=== PATIENT | male | born 1965 | race Caucasian/White ===

== ENCOUNTER 2017-01-11 17:31 | Observation (INO) | payer BC ==
[~2017-01-11] VITALS: Ht 175.3 cm; Wt 75.0 kg
[~2017-01-11 17:31] MED LIST: ASPI81TA82 PO; ATOR20TA42 PO; CLOP75 PO; LISI5 PO; METO25 PO; PROT40TA PO
[2017-01-11 17:35] VITALS: BP 140/88; PULSE 56; RESP 16; TEMP 97.8; O2SAT 97
[2017-01-11] MEDS: NITROGLYCERIN 0.4 MG SL 25 TABS/BTL SL SCH ×3 (18:00→18:10)
[2017-01-11] MEDS ORDERED: SODIUM CHLORIDE 0.9% FLUSH 10 ML FLUSH IVF PRN ×2 (18:00→20:00)
[2017-01-11] MEDS ORDERED: ASPIRIN 325 MG TAB PO ONE (18:00)
[2017-01-11] MEDS ORDERED: MORPHINE SULFATE 4 MG/ML INJ IV PUSH ONE (18:00)
[2017-01-11 18:32] VITALS: BP 123/79; PULSE 72; RESP 18; O2SAT 99
--- NOTE | 2017-01-11 18:39 | PD ---
HPI Chief Complaint: Cardiac Complaint Time Seen by Provider: 17:44 Travel History International Travel<30 days: No Contact w/Intl Traveler<30days: No Traveled to known affect area: No History of Present Illness HPI Patient's 51 years old. About 18 months prior he underwent a CABG. Since then he has been feeling fine. For the past 2 days however he has had chest pressure 6/10 at its worst. At the time of ER evaluation it's 4 out of 10. He has been compliant with all his medications including lisinopril metoprolol atorvastatin propoxyphene and aspirin. He denies any exertional or pleuritic chest pain. There is no radiation of pain. He notes a significant amount of stress and work as well as personal life. Additional complaints include some dentalgia on the right side and diarrhea a week and a half ago or so. PFSH Past Medical History Hx Anticoagulant Therapy: Yes (precautionary for dvt) Cardiac Catheterization: Yes (no stents) Cardiovascular Problems: Yes Diminished Hearing: No Deep Vein Thrombosis: Yes Immunizations Current: Yes Tetanus Vaccination: Unknown Influenza Vaccination: No Social History Alcohol Use: No Tobacco Use: No Substance Use: No Allergies-Medications (Allergen,Severity, Reaction): Coded Allergies: No Known Allergies (Unverified , 12/28/15) Reported Meds & Prescriptions Reported Meds & Active Scripts Active Reported Aspirin 81 Mg Chew 81 Mg CHEW ONCE Paroxetine (Paroxetine HCl) 10 Mg Tab 10 Mg PO DAILY Atorvastatin (Atorvastatin Calcium) 40 Mg Tab 40 Mg PO HS Metoprolol Tartrate 25 Mg Tab 25 Mg PO DAILY Lisinopril 5 Mg Tab 5 Mg PO DAILY Review of Systems Except as stated in HPI: all other systems reviewed are Neg Physical Exam Narrative GENERAL: 51-year-old male well-nourished and developed SKIN: Focused skin assessment warm/dry. HEAD: Atraumatic. Normocephalic. EYES: Pupils equal and round. No scleral icterus. No injection or drainage. ENT: No nasal bleeding or discharge. Mucous membranes pink and moist. NECK: Trachea midline. No JVD. CARDIOVASCULAR: Regular rate and rhythm. No murmur appreciated. Sternotomy incision is healing appropriately without tenderness. RESPIRATORY: No accessory muscle use. Clear to auscultation. Breath sounds equal bilaterally. GASTROINTESTINAL: Abdomen soft, non-tender, nondistended. Hepatic and splenic margins not palpable. MUSCULOSKELETAL: No obvious deformities. No clubbing. No cyanosis. No edema. NEUROLOGICAL: Awake and alert. No obvious cranial nerve deficits. Motor grossly within normal limits. Normal speech. PSYCHIATRIC: Appropriate mood and affect; insight and judgment normal. Data Data Last Documented VS Vital Signs Date Time Temp Pulse Resp B/P Pulse Ox O2 Delivery O2 Flow Rate FiO2 01/11/17 18:32 61 99 Room Air 01/11/17 18:32 18 123/79 01/11/17 17:35 97.8 Vital signs are reviewed Orders Electrocardiogram (01/11/17 17:59) Basic Metabolic Panel (Bmp) (01/11/17 17:59) Ckmb (Isoenzyme) Profile (01/11/17 17:59) Complete Blood Count With Diff (01/11/17 17:59) Magnesium (Mg) (01/11/17 17:59) Prothrombin Time / Inr (Pt) (01/11/17 17:59) Act Partial Throm Time (Ptt) (01/11/17 17:59) Troponin I (01/11/17 17:59) Chest, Single Ap (01/11/17 17:59) Ecg Monitoring (01/11/17 17:59) Iv Access Insert/Monitor (01/11/17 17:59) Oximetry (01/11/17 17:59) Oxygen Administration (01/11/17 17:59) Aspirin (Aspirin) (01/11/17 18:00) Morphine Inj (Morphine Inj) (01/11/17 18:00) Sodium Chloride 0.9% Flush (Ns Flush) (01/11/17 18:00) Nitroglycerin Sl (Nitrostat Sl) (01/11/17 18:00) CKMB (01/11/17 18:20) CKMB% (01/11/17 18:20) Admit Order (Ed Use Only) (01/11/17 ) ^ Saline Lock (01/11/17 19:56) Resp Oxygen Howard C Titrat 1-4 L (01/11/17 ) Notify Dr: Other (01/11/17 19:56) Sodium Chloride 0.9% Flush (Ns Flush) (01/11/17 21:00) Sodium Chloride 0.9% Flush (Ns Flush) (01/11/17 20:00) Activity Bed Rest With Brp (01/11/17 19:56) Vital Signs (Adult) Q4H (01/11/17 19:56) Cardiac Rhythm .As Directed (01/11/17 19:56) Notify Dr: Other .PRN (01/11/17 19:56) Notify DrMarlee Parameters (01/11/17 19:56) Resp Oxygen Nasal Cannula (01/11/17 ) Ckmb (Isoenzyme) Profile (01/11/17 21:20) Ckmb (Isoenzyme) Profile (01/12/17 00:20) Troponin I (01/11/17 21:20) Troponin I (01/12/17 00:20) Electrocardiogram (01/11/17 21:20) Electrocardiogram (01/12/17 00:20) ^ Obtain (01/11/17 19:56) Sodium Chloride 0.9% Flush (Ns Flush) (01/11/17 20:00) Sodium Chloride 0.9% Flush (Ns Flush) (01/11/17 21:00) Acetaminophen (Tylenol) (01/11/17 20:00) Acetamin-Hydrocod 325-7.5 Mg ([place] 7.5 (01/11/17 20:00) Morphine Inj (Morphine Inj) (01/11/17 20:00) Ondansetron Inj (Zofran Inj) (01/11/17 20:00) Nitroglycerin Sl (Nitrostat Sl) (01/11/17 20:00) Aspirin (Aspirin) (01/12/17 09:00) Alprazolam (Xanax) (01/11/17 20:00) Registered Route Associate / Telemetry AHSAN.Q8H (01/11/17 19:56) Labs Laboratory Tests Test 01/11/17 18:20 White Blood Count 6.4 TH/MM3 Red Blood Count 4.60 MIL/MM3 Hemoglobin 13.5 GM/DL Hematocrit 41.4 % Mean Corpuscular Volume 90.0 FL Mean Corpuscular Hemoglobin 29.2 PG Mean Corpuscular Hemoglobin 32.5 % Concent Red Cell Distribution Width 13.0 % Platelet Count 234 TH/MM3 Mean Platelet Volume 8.0 FL Neutrophils (%) (Auto) 57.4 % Lymphocytes (%) (Auto) 30.0 % Monocytes (%) (Auto) 7.0 % Eosinophils (%) (Auto) 4.9 % Basophils (%) (Auto) 0.7 % Neutrophils # (Auto) 3.7 TH/MM3 Lymphocytes # (Auto) 1.9 TH/MM3 Monocytes # (Auto) 0.4 TH/MM3 Eosinophils # (Auto) 0.3 TH/MM3 Basophils # (Auto) 0.0 TH/MM3 CBC Comment DIFF FINAL Differential Comment Prothrombin Time 10.9 SEC Prothromb Time International 1.0 RATIO Ratio Activated Partial 26.4 SEC Thromboplast Time Sodium Level 138 MEQ/L Potassium Level 3.7 MEQ/L Chloride Level 105 MEQ/L Carbon Dioxide Level 26.9 MEQ/L Anion Gap 6 MEQ/L Blood Urea Nitrogen 10 MG/DL Creatinine 0.66 MG/DL Estimat Glomerular Filtration 128 ML/MIN Rate Random Glucose 88 MG/DL Calcium Level 9.2 MG/DL Magnesium Level 2.4 MG/DL Total Creatine Kinase 108 U/L Creatine Kinase MB 0.5 NG/ML Troponin I LESS THAN 0.02 NG/ML MDM Medical Decision Making Medical Screen Exam Complete: Yes Emergency Medical Condition: Yes Medical Record Reviewed: Yes Differential Diagnosis NSTEMI, unstable angina, coronary vasospasm, PE, PTX, aortic dissection, pericarditis, myocarditis, endocarditis, PNA, esophageal disease, aneurysm, musculoskeletal etiologies, anxiety, cocaine/sympathomimetic abuse Narrative Course EKG reveals a sinus rhythm at a rate of 52 normal Patient received nitroglycerin and experienced near complete resolution of chest pressure Chest x-ray reveals no acute disease Oncoming provider will disposition patient pending results. Diagnosis Primary Impression: Chest pain Qualified Code: R07.9 - Chest pain, unspecified type Mg Toth MD Jan 11, 2017 18:39
[2017-01-11 18:42] LABS: AUTOMATED NEUTROPHIL # 3.7 TH/MM3 (1.8-7.7); BASOPHIL % 0.7 % (0.0-2.0); EOSINOPHIL # 0.3 TH/MM3 (0-0.4); EOSINOPHIL % 4.9 % (0.0-4.0); HEMATOCRIT 41.4 % (39.0-51.0); HEMO FLAGS DIFF FINAL; LYMPHOCYTE # 1.9 TH/MM3 (1.0-4.8); MEAN CORPUSCULAR HEMOGLOBIN 29.2 PG (27.0-34.0); MEAN CORPUSCULAR HGB CONC 32.5 % (32.0-36.0); NEUT % 57.4 % (16.0-70.0); PLATELET COUNT 234 TH/MM3 (150-450); WHITE BLOOD COUNT 6.4 TH/MM3 (4.0-11.0)
--- NOTE | 2017-01-11 18:50 | RADRPT ---
EXAM DATE/TIME: 01/11/2017 18:30 [facility] COMPARISON: CHEST SINGLE AP, August 19, 2015, 5:04. INDICATIONS : Chest pain starting today MEDICAL HISTORY : None. SURGICAL HISTORY : CABG. ENCOUNTER: Initial ACUITY: 1 day PAIN SCORE: 8/10 LOCATION: Bilateral upper chest FINDINGS: A single view of the chest demonstrates the lungs to be symmetrically aerated without evidence of mas s, infiltrate or effusion. The cardiomediastinal contours are unremarkable. Osseous structures are intact. The patient is status post median sternotomy for bypass grafting procedure. There are multipl e overlying electrocardiogram leads. CONCLUSION: No acute disease. Jamaal Saha MD on January 11, 2017 at 18:47 Board Certified Radiologist. This report was verified electronically.
[2017-01-11 18:52] LABS: APTT (PATIENT) 26.4 SEC (24.3-30.1); PROTHROMBIN TIME - PATIENT 10.9 SEC (9.8-11.6)
[2017-01-11] MEDS ORDERED: ASPI81CH CHEW (18:58)
[2017-01-11] MEDS ORDERED: ATOR40TA16 PO (18:58)
[2017-01-11] MEDS ORDERED: PARO10TA2 PO (18:58)
[2017-01-11] MEDS ORDERED: LISI-519 PO (18:58)
[2017-01-11] MEDS ORDERED: METO25TA3 PO (18:58)
[2017-01-11 19:13] LABS: ANION GAP 6 MEQ/L (5-15); BICARBONATE 26.9 MEQ/L (21.0-32.0); BLOOD UREA NITROGEN 10 MG/DL (7-18); CHLORIDE 105 MEQ/L (98-107); GLOMERULAR FILTRATION RATE 128 ML/MIN (>89); MAGNESIUM 2.4 MG/DL (1.5-2.5); POTASSIUM 3.7 MEQ/L (3.5-5.1); SODIUM (NA) 138 MEQ/L (136-145)
[2017-01-11 19:19] LABS: CREATINE KINASE 108 U/L (39-308)
--- NOTE | 2017-01-11 19:19 | PD ---
Physical Exam Date Seen by Provider: Jan 11, 2017 Time Seen by Provider: 19:18 Narrative Accepted in transfer of care from Dr. Toth Data Data Last Documented VS Vital Signs Date Time Temp Pulse Resp B/P Pulse Ox O2 Delivery O2 Flow Rate FiO2 01/11/17 18:32 61 99 Room Air 01/11/17 18:32 18 123/79 01/11/17 17:35 97.8 Orders Electrocardiogram (01/11/17 17:59) Basic Metabolic Panel (Bmp) (01/11/17 17:59) Ckmb (Isoenzyme) Profile (01/11/17 17:59) Complete Blood Count With Diff (01/11/17 17:59) Magnesium (Mg) (01/11/17 17:59) Prothrombin Time / Inr (Pt) (01/11/17 17:59) Act Partial Throm Time (Ptt) (01/11/17 17:59) Troponin I (01/11/17 17:59) Chest, Single Ap (01/11/17 17:59) Ecg Monitoring (01/11/17 17:59) Iv Access Insert/Monitor (01/11/17 17:59) Oximetry (01/11/17 17:59) Oxygen Administration (01/11/17 17:59) Aspirin (Aspirin) (01/11/17 18:00) Morphine Inj (Morphine Inj) (01/11/17 18:00) Sodium Chloride 0.9% Flush (Ns Flush) (01/11/17 18:00) Nitroglycerin Sl (Nitrostat Sl) (01/11/17 18:00) CKMB (01/11/17 18:20) CKMB% (01/11/17 18:20) Admit Order (Ed Use Only) (01/11/17 ) ^ Saline Lock (01/11/17 19:56) Resp Oxygen Howard C Titrat 1-4 L (01/11/17 ) Notify Dr: Other (01/11/17 19:56) Sodium Chloride 0.9% Flush (Ns Flush) (01/11/17 21:00) Sodium Chloride 0.9% Flush (Ns Flush) (01/11/17 20:00) Activity Bed Rest With Brp (01/11/17 19:56) Vital Signs (Adult) Q4H (01/11/17 19:56) Cardiac Rhythm .As Directed (01/11/17 19:56) Notify Dr: Other .PRN (01/11/17 19:56) Notify Dr. Parameters (01/11/17 19:56) Resp Oxygen Nasal Cannula (01/11/17 ) Ckmb (Isoenzyme) Profile (01/11/17 21:20) Ckmb (Isoenzyme) Profile (01/12/17 00:20) Troponin I (01/11/17 21:20) Troponin I (01/12/17 00:20) Electrocardiogram (01/11/17 21:20) Electrocardiogram (01/12/17 00:20) ^ Obtain (01/11/17 19:56) Sodium Chloride 0.9% Flush (Ns Flush) (01/11/17 20:00) Sodium Chloride 0.9% Flush (Ns Flush) (01/11/17 21:00) Acetaminophen (Tylenol) (01/11/17 20:00) Acetamin-Hydrocod 325-7.5 Mg ([place] 7.5 (01/11/17 20:00) Morphine Inj (Morphine Inj) (01/11/17 20:00) Ondansetron Inj (Zofran Inj) (01/11/17 20:00) Nitroglycerin Sl (Nitrostat Sl) (01/11/17 20:00) Aspirin (Aspirin) (01/12/17 09:00) Alprazolam (Xanax) (01/11/17 20:00) Cane Flume Watchman / Telemetry AHSAN.Q8H (01/11/17 19:56) Labs Laboratory Tests Test 01/11/17 18:20 White Blood Count 6.4 TH/MM3 Red Blood Count 4.60 MIL/MM3 Hemoglobin 13.5 GM/DL Hematocrit 41.4 % Mean Corpuscular Volume 90.0 FL Mean Corpuscular Hemoglobin 29.2 PG Mean Corpuscular Hemoglobin 32.5 % Concent Red Cell Distribution Width 13.0 % Platelet Count 234 TH/MM3 Mean Platelet Volume 8.0 FL Neutrophils (%) (Auto) 57.4 % Lymphocytes (%) (Auto) 30.0 % Monocytes (%) (Auto) 7.0 % Eosinophils (%) (Auto) 4.9 % Basophils (%) (Auto) 0.7 % Neutrophils # (Auto) 3.7 TH/MM3 Lymphocytes # (Auto) 1.9 TH/MM3 Monocytes # (Auto) 0.4 TH/MM3 Eosinophils # (Auto) 0.3 TH/MM3 Basophils # (Auto) 0.0 TH/MM3 CBC Comment DIFF FINAL Differential Comment Prothrombin Time 10.9 SEC Prothromb Time International 1.0 RATIO Ratio Activated Partial 26.4 SEC Thromboplast Time Sodium Level 138 MEQ/L Potassium Level 3.7 MEQ/L Chloride Level 105 MEQ/L Carbon Dioxide Level 26.9 MEQ/L Anion Gap 6 MEQ/L Blood Urea Nitrogen 10 MG/DL Creatinine 0.66 MG/DL Estimat Glomerular Filtration 128 ML/MIN Rate Random Glucose 88 MG/DL Calcium Level 9.2 MG/DL Magnesium Level 2.4 MG/DL Total Creatine Kinase 108 U/L Creatine Kinase MB 0.5 NG/ML Troponin I LESS THAN 0.02 NG/ML [facility] Medical Record Reviewed: Yes Supervised Visit with DANA: No Interpretation(s) EKG sinus bradycardia rate 52 right ventricular conduction delay anteroseptal T- wave changes noted previously no acute ST elevation Troponin I: Less than 0.02, not elevated; CK total: 108, not elevated Last Impressions Chest X-Ray 01/11/17 8479 Signed Impressions: Service Date/Time: Wednesday, January 11, 2017 18:30 - CONCLUSION: No acute disease. Jamaal Saha MD CBC & BMP Diagram 01/11/17 18:20 Vital Signs Date Time Temp Pulse Resp B/P Pulse Ox O2 Delivery O2 Flow Rate FiO2 01/11/17 18:32 61 99 Room Air 01/11/17 18:32 72 18 123/79 99 Room Air 01/11/17 18:32 99 Room Air 01/11/17 17:35 97.8 56 16 140/88 97 Differential Diagnosis Accepted in transfer of care from Dr. Toth; please refer to his dictation Narrative Course Accepted in transfer of care from Dr. Toth; plan is follow-up of pending labs and admit to chest pain center if labs found to be in normal range and patient remains asymptomatic It is 7:52 PM patient is informed of normal range lab results in no acute injury rest elevation by EKG with recommendation for serial cardiac enzymes to the chest pain center protocol. Patient remains asymptomatic and is agreeable with this plan. 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
[2017-01-11 19:31] LABS: CKMB 0.5 NG/ML (0.5-3.6)
[2017-01-11] MEDS ORDERED: ACETAMINOPHEN 500 MG CPLT PO PRN (20:00)
[2017-01-11] MEDS ORDERED: ONDANSETRON HCL 4 MG/2 ML VIAL IV PRN (20:00)
[2017-01-11] MEDS ORDERED: SODIUM CHLORIDE 0.9% FLUSH 10 ML FLUSH PRN (20:00)
[2017-01-11] MEDS ORDERED: ACETAMINOPHEN/HYDROcodone 325 MG/7.5 MG TAB PO PRN (20:00)
[2017-01-11] MEDS ORDERED: NITROGLYCERIN 0.4 MG SL 25 TABS/BTL SL PRN (20:00)
[2017-01-11] MEDS ORDERED: MORPHINE SULFATE 4 MG/ML INJ IV PRN (20:00)
[2017-01-11] MEDS ORDERED: ALPRAZolam 0.25 MG TAB PO PRN (20:00)
[2017-01-11 20:04] VITALS: BP 130/71; PULSE 60; RESP 16; O2SAT 100
[2017-01-11 20:47] VITALS: BP 121/76; PULSE 54; RESP 18; TEMP 98; O2SAT 99
[2017-01-11 20:52] VITALS: PULSE 59
[2017-01-11] MEDS ORDERED: SODIUM CHLORIDE 0.9% FLUSH 10 ML FLUSH SCH (21:00)
[2017-01-11 22:00] VITALS: O2SAT 98
[2017-01-11 22:11] LABS: CREATINE KINASE 98 U/L (39-308)
[2017-01-12] VITALS (14 sets, daily range): BP systolic 93–125; BP diastolic 55–84; PULSE 47–72; RESP 18; TEMP 96.8–98.3; O2SAT 94–99
[2017-01-12] MEDS: SODIUM CHLORIDE 0.9% FLUSH 10 ML FLUSH IV FLUSH SCH ×3 (00:08→21:09)
[2017-01-12 01:14] LABS: CREATINE KINASE 89 U/L (39-308)
--- NOTE | 2017-01-12 07:03 | EKG ---
Date Performed: 01/11/2017 Time Performed: 18:43:21 PTAGE: 51 years EKG: SINUS BRADYCARDIA POSSIBLE RIGHT VENTRICULAR CONDUCTION DELAY Nonspecific ST-T wave changes ABNORMAL ECG COMPARED TO PRIOR ELECTROCARDIOGRAM, Rate has slowed and RIGHT ventricular conduction d elay is more prominent. PREVIOUS TRACING : 08/19/2015 04.40 DOCTOR: Luis Felipe Villarreal Interpretating Date/Time 01/12/2017 07:01:27
[2017-01-12] MEDS: ASPIRIN 325 MG TAB PO SCH (08:19)
--- NOTE | 2017-01-12 08:51 | HHI.HP ---
HPI Primary Care Physician Humble Sparrow DO Chief Complaint Chest pain History of Present Illness 51-year-old male with significant history of coronary artery disease including CABG 4 presents to the emergency room for further evaluation of chest pressure. Onset . Location substernal, described as chest pressure. Chest pressure episodes generally last a few minutes and he correlates with emotional stress. No radiation of pressure. No associated symptoms of nausea, vomiting, shortness of breath, or diaphoresis. No particular movement, position , or deep breathing makes pain better or worse. Precipitating factors he believes to be stress he is currently under. No known relieving factors. No particular time of day chest pressure begins, he can only relate to chest pressure when he has emotional thinking of his current situation. Endorses he is generally active working long hours and surfing on his days off. He Denies any chest discomfort, pressure, or tightness with exertion. Due to his past coronary artery disease history and persistent intermittent chest pressure he came to the ER for further evaluation. Review of Systems General: No fatigue,weakness, fever, chills, recent illness, or change in appetite. Has been in his general state of health, stating sentences open heart surgery he has adapted healthy eating habits. HEENT: No JORGENSEN, no vision changes, no nasal congestion or drainage, no dysphasia. Old injury to left eye as a child. CV: As stated above. He has been chest pain-free since arrival to ER. No palpitations. Intermittent leg pain after standing many hours, relieved with rest. RESP: No SOB, cough, wheeze, or history of asthma GI: No nausea, vomiting, bowel changes, diarrhea, constipation, pain, distention , melena, blood in the stool. No unintentional weight gain or weight loss. : No dysuria, urgency, frequency EXT: No lower leg edema, no paraesthesias MS: No discomfort or change in ROM. Occasionally he has burning on his chest scar from his CABG. NEURO: No difficulty with balance, LOC, motor/sensory deficits PSYCH: No anxiety, depression. Endorses situational stress regarding multiple personal issues. SKIN: No rashes, no concerning lesions Past Family Social History Allergies: Coded Allergies: No Known Allergies (Unverified , 12/28/15) Past Medical History CAD, PAD without claudication, hyperlipidemia Past Surgical History CABG 4 Reported Medications Active Reported Aspirin 81 Mg Chew 81 Mg CHEW ONCE Paroxetine (Paroxetine HCl) 10 Mg Tab 10 Mg PO DAILY Atorvastatin (Atorvastatin Calcium) 40 Mg Tab 40 Mg PO HS Metoprolol Tartrate 25 Mg Tab 25 Mg PO DAILY Lisinopril 5 Mg Tab 5 Mg PO DAILY Active Ordered Medications Current Medications Medications (Trade) Dose Ordered Sig/Jame Route Start Time Stop Time Status Last Admin (NS Flush) 2 ml BID IV FLUSH 01/11/17 21:00 01/12/17 08:20 (NS Flush) 2 ml UNSCH PRN IVF 01/11/17 20:00 (Tylenol) 500 mg Q4H PRN PO 01/11/17 20:00 ([place] 7.5-325 Mg) 1 tab Q4H PRN PO 01/11/17 20:00 (Morphine Inj) 2 mg Q4H PRN IV 01/11/17 20:00 (Zofran Inj) 4 mg Q6H PRN IV 01/11/17 20:00 (Nitrostat Sl) 0.4 mg Q5M PRN SL 01/11/17 20:00 (Aspirin) 325 mg DAILY PO 01/12/17 09:00 01/12/17 08:19 (Xanax) 0.25 mg Q8H PRN PO 01/11/17 20:00 Family History Father at age 41 from myocardial infarction. Brother had first stent placed at age 50. Mother is alive and well status post liver transplant 3 years ago. Social History Known coronary artery disease and hyperlipidemia. No known diabetes or hypertension. Quit smoking 2006, prior to quitting smoking 1 pack daily for 20 years. Endorses rare alcohol use. Denies any illegal drug use. 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 Generally very active. Past cardiac testing Follows with Dr. Kishore aJime. No recent stress testing. 08/30-CABG [address] Randal TANNER to the LAD, reverse saphenous to diagonal 2, reverse saphenous to OM1 and terminal Circumflex 08/16/15 Cardica cath (Dr. Jaime)-Proximal LAD 80%, Diagonal 75%, Circumflex 90% before the OM, OM 70%. Preserved LVF. Physical Exam Vital Signs Vital Signs Date Time Temp Pulse Resp B/P Pulse Ox O2 Delivery O2 Flow Rate FiO2 01/12/17 08:00 96.8 59 18 93/55 98 01/12/17 07:50 48 01/12/17 04:01 47 01/12/17 03:47 98.3 54 18 105/64 98 01/12/17 00:25 98.0 57 18 113/68 99 01/12/17 00:00 55 01/11/17 22:00 98 01/11/17 20:52 59 01/11/17 20:47 98.0 54 18 121/76 99 01/11/17 20:04 60 16 130/71 100 Room Air 01/11/17 18:32 61 99 Room Air 01/11/17 18:32 72 18 123/79 99 Room Air 01/11/17 18:32 99 Room Air 01/11/17 17:35 97.8 56 16 140/88 97 Physical Exam GENERAL: Alert WN, WD, NAD, pleasant, male HEAD: NC, AT EYES: Sclera clear, conjunctiva without injection, pupils round, left pupil larger than right ENT: Mucous membranes pink and moist NECK: Supple, no masses, trachea midline CV: RRR, without murmur, rub, gallop, no JVD, S1-S2 no S3-S4. No carotid bruits. RESP: Clear lungs throughout bilateral, no crackles, wheeze, rhonchi, symmetrical chest rise, nonlabored, able to speak in full sentences ABD: Soft, NT, ND, no masses, positive bowel tones EXT: Pulses +1 right DP,+2 left DP, +2 bilateral PT,no dependent edema MS: Normal tone 4 extremities, nontender, no obvious deformities, full range of motion NEURO: CN II through CN XII grossly intact, motor strength 5/5, gait WNL PSYCH: A+O 3, pleasant affect, appropriate speech, appropriate mood and affect , insight and judgment SKIN: Normal turgor, normal texture, no lesions, no rashes, brisk cap refill, even hair distribution Laboratory Laboratory Tests Test 01/11/17 01/11/17 01/12/17 18:20 21:26 00:10 White Blood Count 6.4 Red Blood Count 4.60 Hemoglobin 13.5 Hematocrit 41.4 Mean Corpuscular Volume 90.0 Mean Corpuscular Hemoglobin 29.2 Mean Corpuscular Hemoglobin 32.5 Concent Red Cell Distribution Width 13.0 Platelet Count 234 Mean Platelet Volume 8.0 Neutrophils (%) (Auto) 57.4 Lymphocytes (%) (Auto) 30.0 Monocytes (%) (Auto) 7.0 Eosinophils (%) (Auto) 4.9 Basophils (%) (Auto) 0.7 Neutrophils # (Auto) 3.7 Lymphocytes # (Auto) 1.9 Monocytes # (Auto) 0.4 Eosinophils # (Auto) 0.3 Basophils # (Auto) 0.0 CBC Comment DIFF FINAL Differential Comment Prothrombin Time 10.9 Prothromb Time International 1.0 Ratio Activated Partial 26.4 Thromboplast Time Sodium Level 138 Potassium Level 3.7 Chloride Level 105 Carbon Dioxide Level 26.9 Anion Gap 6 Blood Urea Nitrogen 10 Creatinine 0.66 Estimat Glomerular Filtration 128 Rate Random Glucose 88 Calcium Level 9.2 Magnesium Level 2.4 Total Creatine Kinase 108 98 89 Creatine Kinase MB 0.5 Troponin I LESS THAN 0.02 LESS THAN 0.02 LESS THAN 0.02 Result Diagram: 01/11/17 1820 01/11/17 182 Imaging Last Impressions Chest X-Ray 01/11/17 175 Signed Impressions: Service Date/Time: Saturday, January 11, 2017 18:30 - CONCLUSION: No acute disease. Jamaal Saha MD Course EKGs Normal sinus rhythm, normal axis, right ventricular delay, nonspecific ST T- wave changes Assessment and Plan Assessment and Plan #1 Chest pain-admitted to chest pain center. Ruled out with serial EKGs and cardiac enzymes. Seen and evaluated by Dr. Mahesh Hawkins. Atypical chest discomfort most likely due to stress, however due to history of coronary artery disease will complete nuclear treadmill before discharge. Reassurance provided. Patient's hydroelectric station operator, Dr. Jaime, notified of above. #2 History of CAD-continue aspirin, atorvastatin, metoprolol, and lisinopril #3 Situation stress-encouraged daily exercise, eating a well-balanced diet, and getting plenty of rest. Discussed in length importance of finding healthy ways to alleviate stress and to maintain a positive attitude knowing situational stressful past. 15:10-Lexiscan conclusion-Focal area of reversibility of inferolateral wall of left ventricle suggesting ischemia. Spoke with Dr. Jaime. Dr. Jaime will see him in the am. Orders received for 1 inch Nitro Q6H and Lovenox 1mg/kg SC BID received. Possible catheterization on Saturday. Khadra Bowman Jan 12, 2017 08:51
[2017-01-12] MEDS: PARoxetine HCL 20 MG TAB PO SCH (09:37)
[2017-01-12] MEDS: LISINOPRIL 5 MG TAB PO SCH (09:38)
--- NOTE | 2017-01-12 10:05 | EKG ---
Date Performed: 01/12/2017 Time Performed: 00:22:59 PTAGE: 51 years EKG: SINUS BRADYCARDIA RIGHT BUNDLE BRANCH BLOCK ABNORMAL ECG No significant change from prior e lectrocardiogram. PREVIOUS TRACING : 01/11/2017 21.34 DOCTOR: Luis Felipe Villarreal Interpretating Date/Time 01/12/2017 10:03:28
--- NOTE | 2017-01-12 10:07 | EKG ---
Date Performed: 01/11/2017 Time Performed: 21:34:08 PTAGE: 51 years EKG: SINUS BRADYCARDIA POSSIBLE RIGHT VENTRICULAR CONDUCTION DELAY Possible INFERIOR MYOCARDIAL INFARCTION ABNORMAL ECG No significant change from prior electrocardiogram. PREVIOUS TRACING : 01/11/2017 18.43 DOCTOR: Luis Felipe Villarreal Interpretating Date/Time 01/12/2017 10:05:44
--- NOTE | 2017-01-12 10:31 | HHI.HP ---
HPI Primary Care Physician Humble Sparrow, History of Present Illness CC: INTERMITTENT CHEST PRESSURE HPI: HISTORY OF CABG NOW WITH INTERMITTENT SENSATION OF MILD CHEST PRESSURE NOT ASSOCIATED WITH EXERTION. NON RADIATING, NO SOB, NO DIAPHORESIS, NO NV. PROBABLE ABOUT 5 A DAY. UNDER A LOT OF STRESS. COMPLIANT. NO PAIN WITH EXERTION PE: MILDLY DILATED AND POORLY REACTIVE R PUPIL MIDLINE SCAR TATTOOED SKIN OTHERWISE NO SIG FINDINGS ASSESSMENT KNOWN CAD CP HAS RO FOR ACS PENDING NUC ETT STRESS PLAN NUC ETT FU WITH DR SCHWARTZ IF NEG, DISCUSS IF POSITIVE Past Family Social History Allergies: Coded Allergies: No Known Allergies (Unverified , 12/28/15) Reported Medications Reported Meds & Active Scripts Active Reported Aspirin 81 Mg Chew 81 Mg CHEW ONCE Paroxetine (Paroxetine HCl) 10 Mg Tab 10 Mg PO DAILY Atorvastatin (Atorvastatin Calcium) 40 Mg Tab 40 Mg PO HS Metoprolol Tartrate 25 Mg Tab 25 Mg PO DAILY Lisinopril 5 Mg Tab 5 Mg PO DAILY Active Ordered Medications Current Medications Medications (Trade) Dose Ordered Sig/Jame Route Start Time Stop Time Status Last Admin (NS Flush) 2 ml BID IV FLUSH 01/11/17 21:00 01/12/17 08:20 (NS Flush) 2 ml UNSCH PRN IVF 01/11/17 20:00 (Tylenol) 500 mg Q4H PRN PO 01/11/17 20:00 ([place] 7.5-325 Mg) 1 tab Q4H PRN PO 01/11/17 20:00 (Morphine Inj) 2 mg Q4H PRN IV 01/11/17 20:00 (Zofran Inj) 4 mg Q6H PRN IV 01/11/17 20:00 (Nitrostat Sl) 0.4 mg Q5M PRN SL 01/11/17 20:00 (Aspirin) 325 mg DAILY PO 01/12/17 09:00 01/12/17 08:19 (Xanax) 0.25 mg Q8H PRN PO 01/11/17 20:00 (Lipitor) 40 mg HS PO 01/12/17 21:00 (Prinivil) 5 mg DAILY PO 01/12/17 09:00 01/12/17 09:38 (Paxil) 10 mg DAILY PO 01/12/17 10:00 Physical Exam Vital Signs Vital Signs Date Time Temp Pulse Resp B/P Pulse Ox O2 Delivery O2 Flow Rate FiO2 01/12/17 09:36 125/84 01/12/17 08:00 96.8 59 18 93/55 98 01/12/17 07:50 48 01/12/17 04:01 47 01/12/17 03:47 98.3 54 18 105/64 98 01/12/17 00:25 98.0 57 18 113/68 99 01/12/17 00:00 55 01/11/17 22:00 98 01/11/17 20:52 59 01/11/17 20:47 98.0 54 18 121/76 99 01/11/17 20:04 60 16 130/71 100 Room Air 01/11/17 18:32 61 99 Room Air 01/11/17 18:32 72 18 123/79 99 Room Air 01/11/17 18:32 99 Room Air 01/11/17 17:35 97.8 56 16 140/88 97 Laboratory Laboratory Tests Test 01/11/17 01/11/17 01/12/17 18:20 21:26 00:10 White Blood Count 6.4 Red Blood Count 4.60 Hemoglobin 13.5 Hematocrit 41.4 Mean Corpuscular Volume 90.0 Mean Corpuscular Hemoglobin 29.2 Mean Corpuscular Hemoglobin 32.5 Concent Red Cell Distribution Width 13.0 Platelet Count 234 Mean Platelet Volume 8.0 Neutrophils (%) (Auto) 57.4 Lymphocytes (%) (Auto) 30.0 Monocytes (%) (Auto) 7.0 Eosinophils (%) (Auto) 4.9 Basophils (%) (Auto) 0.7 Neutrophils # (Auto) 3.7 Lymphocytes # (Auto) 1.9 Monocytes # (Auto) 0.4 Eosinophils # (Auto) 0.3 Basophils # (Auto) 0.0 CBC Comment DIFF FINAL Differential Comment Prothrombin Time 10.9 Prothromb Time International 1.0 Ratio Activated Partial 26.4 Thromboplast Time Sodium Level 138 Potassium Level 3.7 Chloride Level 105 Carbon Dioxide Level 26.9 Anion Gap 6 Blood Urea Nitrogen 10 Creatinine 0.66 Estimat Glomerular Filtration 128 Rate Random Glucose 88 Calcium Level 9.2 Magnesium Level 2.4 Total Creatine Kinase 108 98 89 Creatine Kinase MB 0.5 Troponin I LESS THAN 0.02 LESS THAN 0.02 LESS THAN 0.02 Result Diagram: 01/11/17 6331 01/11/17 1820 Mahesh Hawkins MD Jan 12, 2017 10:31
--- NOTE | 2017-01-12 14:33 | RADRPT ---
EXAM DATE/TIME: 01/12/2017 12:41 [facility] COMPARISON: No previous studies available for comparison. INDICATIONS : Susbternal chest pain post CABG. Angina Coronary artery disease. DOSE: 25.1 mCi Tc99m Myoview at stress 8.5 mCi Tc99m Myoview at rest REST HEART RATE: 75 BPM TARGET HEART RATE: 145 BPM MAX HEART RATE: 149 BPM REST BLOOD PRESSURE: 118/72 mmHg MAX BLOOD PRESSURE: 142/84 mmHg EJECTION FRACTION: 69% MEDICAL HISTORY : None SURGICAL HISTORY : CABG ENCOUNTER: Initial ACUITY: 1 day PAIN SCALE: 5/10 LOCATION: Substernal chest TECHNIQUE: The patient underwent upright treadmill exercise in the chest pain center. Continuous ECG tracing wa s monitored during stress. Gated SPECT imaging was performed after stress, and conventional SPECT im aging was performed at rest. The examination was performed on a SPECT/CT scanner, both attenuation-c orrected and non-corrected datasets were reviewed. FINDINGS: DISTRIBUTION: The maximum perfused segment at stress is in the septal wall. PERFUSION STUDY: The pattern of perfusion at stress reveals decreased perfusion in the inferolateral wall with reversi bility. GATED STUDY: There is intact wall motion and thickening without hypokinetic or dyskinetic segments. CONCLUSION: 1. Focal area of reversibility in the inferolateral wall of the left ventricle most characteristic of an area of ischemia. 2. Normal wall motion. RISK CATEGORY: High (>3% Annual Mortality Rate) Ryan Car MD on January 12, 2017 at 14:22 Board Certified Radiologist. This report was verified electronically.
[2017-01-12] MEDS: METOPROLOL TARTRATE 25 MG TAB PO SCH (15:46)
[2017-01-12] MEDS: ENOXAPARIN SODIUM 80 MG/0.8 ML SYRINGE SQ SCH (15:46)
[2017-01-12] MEDS: NITROGLYCERIN 2% OINT 1 GM PACKET TOPICAL SCH ×2 (15:46→23:42)
--- NOTE | 2017-01-12 15:46 | MB ---
cc: STALIN SCHWARTZ M.D., ALAN S. M.D. DATE OF CONSULTATION: 01/12/2017. REASON FOR CONSULTATION: Chest discomfort. HISTORY OF PRESENT ILLNESS: I have reviewed outside and hospital records. The patient is a pleasant 51-year-old white gentleman who I am seeing for chest discomfort. The patient had an abnormal SPECT nuclear in 2015 and underwent catheterization 08/30 showing normal ventricular function with triple-vessel disease. He had bypass surgery with TANNER to the LAD and vein graft to diagonal number two, obtuse marginal and distal circumflex. He has done well since then without any cardiac symptoms. This past Saturday he went out to eat. He woke up and felt as if his skin was on fire during the night and had diarrhea. On he just did not feel right, feeling fatigued. Yesterday morning, Saturday, he had discomfort which was mild substernal pressure on and off lasting 10 minutes in time. He has not had any discomfort since then. The patient has no other cardiopulmonary symptoms. PAST MEDICAL HISTORY: 1. Hypertension. 2. Hyperlipidemia. 3. Family history of early coronary artery disease. ALLERGIES: NONE. SOCIAL HISTORY: He is single and smoked up to ten years ago and has an occasional drink. MEDICATION LIST: Reviewed. EKGS: EKG showed sinus rhythm with right bundle-branch block. IMAGING STUDIES: Chest x-ray shows no active disease post bypass. SPECT nuclear was performed where he exercised on a treadmill without chest pain. There was a focal area of reversibility in the inferolateral wall with normal LV function. LABORATORY DATA: CBC, PT/PTT normal. Troponins negative x3. Potassium 3.7 with creatinine 0.66. PHYSICAL EXAMINATION: GENERAL: On exam, he is alert and oriented times three. VITAL SIGNS: Afebrile. The vital signs are stable. SKIN: There are no xanthelasma and oropharyngeal mucosa normal. CHEST: Clear. CARDIOVASCULAR: JVD normal. S1, S2. No murmurs or gallops. ABDOMEN: Benign. EXTREMITIES: No cyanosis, clubbing or edema. PULSES: Carotids without bruits. Radials 1 to 2+. Femorals 1 to 2+ without bruits. Pedals 1+. NEUROLOGIC: He was not ambulated. ASSESSMENT AND PLAN: This gentleman presents with chest discomfort occurring after some GI type episodes. He did not have chest discomfort on the stress test and has done well otherwise. He has a single area of reversibility on his SPECT nuclear. This may or may not be angina, but certainly with this type of discomfort and an abnormal nuclear, I would lean towards catheterization with possible intervention. The risks / benefits / alternatives have been explained and informed consent obtained. I did speak with Dr. Schwartz who will be seeing him tomorrow and will schedule this for Saturday. In the meantime, antianginals, aspirin and statins will be continued and he will be placed on Lovenox by the primary care providers. Dr. Schwartz will see him tomorrow. All questions were answered. MD AZEB Cruz/ROMULO /3:28 PM /3:42 PM [place]
[2017-01-12] MEDS: ATORVASTATIN 40 MG TAB PO SCH (21:09)
[2017-01-13] VITALS (11 sets, daily range): BP systolic 107–114; BP diastolic 67–68; PULSE 53–83; RESP 17–20; TEMP 96–98.4; O2SAT 95–98
[2017-01-13] MEDS: ENOXAPARIN SODIUM 80 MG/0.8 ML SYRINGE SQ SCH ×2 (04:27→17:16)
[2017-01-13] MEDS: NITROGLYCERIN 2% OINT 1 GM PACKET TOPICAL SCH ×3 (06:01→17:16)
[2017-01-13] MEDS: ASPIRIN 325 MG TAB PO SCH (08:46)
[2017-01-13] MEDS: METOPROLOL TARTRATE 25 MG TAB PO SCH (08:47)
[2017-01-13] MEDS: SODIUM CHLORIDE 0.9% FLUSH 10 ML FLUSH IV FLUSH SCH ×2 (08:47→20:43)
[2017-01-13] MEDS: PARoxetine HCL 20 MG TAB PO SCH (08:47)
[2017-01-13] MEDS: LISINOPRIL 5 MG TAB PO SCH (08:47)
--- NOTE | 2017-01-13 11:21 | PD.CONS ---
History of Present Illness Service primary care Consult Requested By Reason for Consult primary care mgt Primary Care Physician Humble Sparrow DO Diagnoses: (1) Chest pain (2) S/P CABG x 4 (3) Coronary artery disease Review of Systems Cardiovascular: COMPLAINS OF: Chest pain Gastrointestinal: COMPLAINS OF: Abdominal pain, Diarrhea, Nausea Except as stated in HPI: all other systems reviewed are Neg Past Family Social History Allergies: Coded Allergies: No Known Allergies (Unverified , 12/28/15) Past Medical History CAD HTN 4V CABG HPLD Past Surgical History 4VCABG Reported Medications Reported Meds & Active Scripts Active Reported Aspirin 81 Mg Chew 81 Mg CHEW ONCE Paroxetine (Paroxetine HCl) 10 Mg Tab 10 Mg PO DAILY Atorvastatin (Atorvastatin Calcium) 40 Mg Tab 40 Mg PO HS Metoprolol Tartrate 25 Mg Tab 25 Mg PO DAILY Lisinopril 5 Mg Tab 5 Mg PO DAILY Active Ordered Medications Inpatient Medications Acetaminophen (Tylenol) 500 mg Q4H PRN PO HEADACHE; Start 01/11/17 at 20:00 Acetaminophen/ Hydrocodone Bitart ([place] 7.5-325 Mg) 1 tab Q4H PRN PO PAIN SCALE 1 TO 7; Start 01/11/17 at 20:00 Alprazolam (Xanax) 0.25 mg Q8H PRN PO ANXIETY; Start 01/11/17 at 20:00 Aspirin (Aspirin) 325 mg DAILY PO Last administered on 01/13/17 08:46; Start at 09:00 Atorvastatin Calcium (Lipitor) 40 mg HS PO Last administered on 01/12/17 21:09 ; Start 01/12/17 at 21:00 Enoxaparin Sodium (Lovenox Inj) 75 mg Q12H SQ Last administered on 01/13/17 04: 27; Start 01/12/17 at 16:00 Lisinopril (Prinivil) 5 mg DAILY PO Last administered on 01/12/17 09:38; Start 01/12/17 at 09:00 Metoprolol Tartrate (Lopressor) 25 mg DAILY PO Last administered on 01/12/17 15 :46; Start 01/12/17 at 15:00 Morphine Sulfate (Morphine Inj) 2 mg Q4H PRN IV PAIN SCALE 8 TO 10; Start 01/11 at 20:00 Nitroglycerin (Nitroglycerin 2% Oint) 1 inch Q6HR TOPICAL Last administered on 01/13/17 06:01; Start 01/12/17 at 16:00 Nitroglycerin (Nitrostat Sl) 0.4 mg Q5M PRN SL CHEST PAIN; Start 01/11/17 at 20 :00 Ondansetron HCl (Zofran Inj) 4 mg Q6H PRN IV NAUSEA; Start 01/11/17 at 20:00 Paroxetine HCl (Paxil) 10 mg DAILY PO Last administered on 01/13/17 08:47; Start 01/12/17 at 10:00 Sodium Chloride (NS Flush) 2 ml BID .XX ; Start 01/11/17 at 21:00; Stop at 21:00; Status DC Family History FATHER HAD HEART DISEASE Social History non smoker rare drinker Physical Exam Vital Signs Vital Signs Date Time Temp Pulse Resp B/P Pulse Ox O2 Delivery O2 Flow Rate FiO2 01/13/17 08:05 59 01/13/17 07:59 96.7 58 19 107/67 96 01/13/17 04:03 59 01/13/17 00:01 53 01/12/17 23:48 98.1 60 18 106/63 94 01/12/17 22:09 98.2 60 18 101/62 96 01/12/17 20:04 61 01/12/17 16:00 96.8 72 18 116/69 95 01/12/17 15:33 72 01/12/17 12:00 97.2 68 18 113/70 98 01/12/17 11:07 67 Physical Exam GENERAL: This is a well-nourished, well-developed patient, in no apparent distress. SKIN: No rashes, ecchymoses or lesions. Cool and dry. HEAD: Atraumatic. Normocephalic. No temporal or scalp tenderness. EYES: Pupils equal round and reactive. Extraocular motions intact. No scleral icterus. No injection or drainage. ENT: Nose without bleeding, purulent drainage or septal hematoma. Throat without erythema, tonsillar hypertrophy or exudate. Uvula midline. Airway patent. NECK: Trachea midline. No JVD or lymphadenopathy. Supple, nontender, no meningeal signs. CARDIOVASCULAR: Regular rate and rhythm without murmurs, gallops, or rubs. RESPIRATORY: Clear to auscultation. Breath sounds equal bilaterally. No wheezes , rales, or rhonchi. GASTROINTESTINAL: Abdomen soft, non-tender, nondistended. No hepato-splenomegaly , or palpable masses. No guarding. MUSCULOSKELETAL: Extremities without clubbing, cyanosis, or edema. No joint tenderness, effusion, or edema noted. No calf tenderness. Negative Homans sign bilaterally. NEUROLOGICAL: Awake and alert. Cranial nerves II through XII intact. Motor and sensory grossly within normal limits. Five out of 5 muscle strength in all muscle groups. Normal speech. Result Diagram: 01/11/17 18201/11/17 182 Imaging Last 48 hours Impressions Myocardial Perfusion Scan Nuc Med 01/12/17 0000 Signed Impressions: Service Date/Time: Thursday, January 12, 2017 12:41 - CONCLUSION: 1. Focal area of reversibility in the inferolateral wall of the left ventricle most characteristic of an area of ischemia. 2. Normal wall motion. RISK CATEGORY: High (>3%% Annual Mortality Rate) Ryan Car MD Chest X-Ray 01/11/17 1759 Signed Impressions: Service Date/Time: Wednesday, January 11, 2017 18:30 - CONCLUSION: No acute disease. Jamaal Saha MD Course no further cp while here small area of reversible defect noted on nuc will have cath in am Assessment and Plan Problem List: (1) Chest pain Status: Acute Plan: heart cath in am (2) Stomach pain Status: Acute Plan: add protonix (3) Stress Status: Acute Plan: increase paxil (4) Anxiety Status: Acute Plan: increase paxil Assessment and Plan heart cath in am will start gi meds Discussed Condition With patient Discharge Planning home Problem Qualifiers (1) Chest pain: Qualified Code: R07.9 - Chest pain, unspecified type Humble Sparrow DO Jan 13, 2017 11:21
--- NOTE | 2017-01-13 13:02 | PD.CARD.PN ---
Subjective Subjective Remarks No complaints. No angina Objective Medications Current Medications Medications (Trade) Dose Ordered Sig/Jame Route Start Time Stop Time Status Last Admin (NS Flush) 2 ml BID IV FLUSH 01/11/17 21:00 01/13/17 08:47 (NS Flush) 2 ml UNSCH PRN IVF 01/11/17 20:00 (Tylenol) 500 mg Q4H PRN PO 01/11/17 20:00 ([place] 7.5-325 Mg) 1 tab Q4H PRN PO 01/11/17 20:00 (Morphine Inj) 2 mg Q4H PRN IV 01/11/17 20:00 (Zofran Inj) 4 mg Q6H PRN IV 01/11/17 20:00 (Nitrostat Sl) 0.4 mg Q5M PRN SL 01/11/17 20:00 (Aspirin) 325 mg DAILY PO 01/12/17 09:00 01/13/17 08:46 (Xanax) 0.25 mg Q8H PRN PO 01/11/17 20:00 (Lipitor) 40 mg HS PO 01/12/17 21:00 01/12/17 21:09 (Prinivil) 5 mg DAILY PO 01/12/17 09:00 01/12/17 09:38 (Lopressor) 25 mg DAILY PO 01/12/17 15:00 01/12/17 15:46 (Nitroglycerin 2% Oint) 1 inch Q6HR TOPICAL 01/12/17 16:00 01/13/17 12:13 (Lovenox Inj) 75 mg Q12H SQ 01/12/17 16:00 01/13/17 04:27 (Paxil) 20 mg DAILY PO 01/14/17 09:00 (Protonix) 40 mg DAILY PO 01/14/17 09:00 Vital Signs / I&O Vital Signs Date Time Temp Pulse Resp B/P Pulse Ox O2 Delivery O2 Flow Rate FiO2 01/13/17 12:16 98.4 80 17 112/68 97 01/13/17 11:06 98 21 01/13/17 08:05 59 01/13/17 07:59 96.7 58 19 107/67 96 01/13/17 04:03 59 01/13/17 00:01 53 01/12/17 23:48 98.1 60 18 106/63 94 01/12/17 22:09 98.2 60 18 101/62 96 01/12/17 20:04 61 01/12/17 16:00 96.8 72 18 116/69 95 01/12/17 15:33 72 I/O 01/12/17 01/12/17 01/12/17 01/13/17 01/13/17 01/13/17 07:00 15:00 23:00 07:00 15:00 23:00 Intake Total 480 ml 350 ml 240 ml Balance 480 ml 350 ml 240 ml Intake Oral 480 ml 350 ml 240 ml # Voids 6 2 # Bowel Movements 0 Physical Exam GENERAL: Well developed, well nourished. No acute distress. HEENT: Jugular venous pressure is normal. CHEST: Lungs clear to auscultation bilaterally. Unlabored respiratory effort. CARDIAC: Regular rate and rhythm without S3, S4, or murmur. ABDOMEN: Soft, nontender, no hepatosplenomegaly. Bowel sounds present. EXTREMITIES: No clubbing, cyanosis, or edema. Right fem and PT pulses nl. Laboratory Current Medications Medications (Trade) Dose Ordered Sig/Jame Route Start Time Stop Time Status Last Admin (NS Flush) 2 ml BID IV FLUSH 01/11/17 21:00 01/13/17 08:47 (NS Flush) 2 ml UNSCH PRN IVF 01/11/17 20:00 (Tylenol) 500 mg Q4H PRN PO 01/11/17 20:00 ([place] 7.5-325 Mg) 1 tab Q4H PRN PO 01/11/17 20:00 (Morphine Inj) 2 mg Q4H PRN IV 01/11/17 20:00 (Zofran Inj) 4 mg Q6H PRN IV 01/11/17 20:00 (Nitrostat Sl) 0.4 mg Q5M PRN SL 01/11/17 20:00 (Aspirin) 325 mg DAILY PO 01/12/17 09:00 01/13/17 08:46 (Xanax) 0.25 mg Q8H PRN PO 01/11/17 20:00 (Lipitor) 40 mg HS PO 01/12/17 21:00 01/12/17 21:09 (Prinivil) 5 mg DAILY PO 01/12/17 09:00 01/12/17 09:38 (Lopressor) 25 mg DAILY PO 01/12/17 15:00 01/12/17 15:46 (Nitroglycerin 2% Oint) 1 inch Q6HR TOPICAL 01/12/17 16:00 01/13/17 12:13 (Lovenox Inj) 75 mg Q12H SQ 01/12/17 16:00 01/13/17 04:27 (Paxil) 20 mg DAILY PO 01/14/17 09:00 (Protonix) 40 mg DAILY PO 01/14/17 09:00 Imaging Last 48 hours Impressions Myocardial Perfusion Scan Nuc Med 01/12/17 0000 Signed Impressions: Service Date/Time: Thursday, January 12, 2017 12:41 - CONCLUSION: 1. Focal area of reversibility in the inferolateral wall of the left ventricle most characteristic of an area of ischemia. 2. Normal wall motion. RISK CATEGORY: High (>3%% Annual Mortality Rate) Ryan Car MD Chest X-Ray 01/11/17 7758 Signed Impressions: Service Date/Time: Wednesday, January 11, 2017 18:30 - CONCLUSION: No acute disease. Jamaal Saha MD Assessment and Plan Problem List: (1) Coronary artery disease (2) Hyperlipidemia (3) Unstable angina pectoris Assessment and Plan: Consented for cath, poss PCI. Risks discussed. Assessment and Plan Cardiac cath in AM Kishore Jaime MD Jan 13, 2017 13:02
[2017-01-13] MEDS ORDERED: diphenhydrAMINE HCL 50 MG CAP PO SCH (13:15)
[2017-01-13] MEDS ORDERED: DIAZEPAM 5 MG TAB PO SCH (13:15)
[2017-01-13] MEDS: ATORVASTATIN 40 MG TAB PO SCH (20:43)
[2017-01-13] MEDS: SODIUM CHLOR 0.9% 1000 ML INJ 1,000 ML IV SCH (23:02)
[2017-01-14 00:13] VITALS: PULSE 55
[2017-01-14] MEDS: NITROGLYCERIN 2% OINT 1 GM PACKET TOPICAL SCH ×2 (00:17→06:17)
[2017-01-14] MEDS: SODIUM CHLOR 0.9% 1000 ML INJ 1,000 ML IV SCH (03:17)
[2017-01-14] MEDS: ENOXAPARIN SODIUM 80 MG/0.8 ML SYRINGE SQ SCH (04:00)
[2017-01-14 04:05] VITALS: PULSE 53
[2017-01-14 04:34] VITALS: BP 110/69; PULSE 56; RESP 20; TEMP 98.7; O2SAT 97
[2017-01-14] MEDS ORDERED: HEPARIN-NS/PF INJ 500 ML ONE (07:16)
[2017-01-14] MEDS ORDERED: MIDAZOLAM HCL 2 MG/2 ML VIAL ONE (07:19)
[2017-01-14] MEDS ORDERED: NITROGLYCERIN INJ 5 ML ONE (08:14)
--- NOTE | 2017-01-14 08:39 | CATHPROC ---
[employer] HIS Report Study Information Study Number Admission Scheduled Start Study Start [id number] 01/11/2017 01/13/2017 Jan 14 2017 6:49AM Study Type [place] Service Left/Possible PCI Cardiac Catheterization Referring Institution Admit Source Facility Department 1 Emergency department [facility] - Automation Mechanic Physician and Clinical Staff Initial Kishore Horne Finisher Tailor Apprentice Kellie Welch,BRANDT Finisher Tailor ApprenticeAnnette Peacock,BRANDT Recorder [place],DOPE POURER TECH2 Scrub Adriana Clemons RCIS TECH2 Procedures Performed Procedure Location (Site) Vessel Name Angiogram LV LV Ventricle Coronary Angiograms LCA Left Coronary Coronary Angiograms RCA Right Coronary Coronary Angiograms TANNER-LAD Left Coronary Coronary Angiograms SVG-DIAG Left Coronary Coronary Angiograms SVG-OM CIRC L Heart Cath Equipment Time Sider Mechanic Description Size Mfg Part Number Used/Scraped TRANSDUCER, JOSÉ [id number] 07:26 PANDEY LEOS * Used W/STOCKCOCK *[id number] [id number] *[id number] [id number] *[id number] [id number] *[id number] PIGTAIL ANG. 145 INFINITI 534-652S CATHETER *[id number] 08:25 DAIG/ST. TAN MEDICAL ANGIOSEAL, FR6 VIP FR 6 Used *[id number] 07:26 MEDLINE INDUSTRIES PACK, CCL CUSTOM * Used *[id number] 07:26 [employer]. PACER PEN, SKIN DUAL W/ RULER * Used *[id number] 07:26 [employer] MEDICAL SHEATH, FR6.5 PRELUDE 11CM FR 6.5 038ACT Used *[id number] 07:26 [employer] MEDICAL WIRE, 3MMJ .035 180CM 180CM Used *[id number] 07:26 NAMIC MANIFOLD, 4 PORT * Used *[id number] 07:26 NYCOMED OMNIPAQUE, 350 MG, 100ML 100ML [id number] Used 07:56 NYCOMED OMNIPAQUE, 350 MG, 50ML 50ML [id number] Used [id number] 07:26 [employer]io MEDICAL BLANKET,WARM AIR CCL * Used *[id number] History: Allergies Allergy Reaction NKDA History: Risk Factors Family History of Hypertension Dyslipidemia Previous MA Previous Heart Failure Premature CAD No Yes No No No Prior Valve Prior PCI Prior CABG Prior CABGDate Surgery No No Yes 08/15/2015 Cerebrovascular Peripheral Artery Chronic Lung On Dialysis Diabetes Disease Disease Disease No No No No No History: Symptoms/Diagnosis Selection Items Chest pain History: Stress Tests Stress or Imaging Studies Performed Yes Standard Exercise Stress Test No Stress Echo No Stress Test SPECT Stress Test SPECT Result Yes Positive Cardiac CTA Coronary Calcium Score No No History: MA/CV Data Previous Cath Date Previous CABG Date 08/15/2015 07/15/2013 History: Other Current Smoker Method Quit Packs a Day Years Used Pack Years No Cigarettes 10 Years Ago 1 20 20 Labs Hgb (g/dl) Hct (%) RBC (MIL/MM3) WBC (l/cumm) Platelets (thousands) 11.60-17.00 35.00-51.00 4.00-5.90 4.00-11.00 150.00-450.00 13.5 41.4 4.6 6.4 234 Glucose (mg/dl) BUN (mg/dl) Creatinine (mg/dl) BUN:Creatinine (1:x) 74.00-106.00 7.00-18.00 0.50-1.30 10.00-20.00 88 10 0.6 16.7 Na (meq/l) K (meq/l) Cl (meq/l) CO2 (mmol/L) Ca (mg/dl) 136.00-145.00 3.50-5.10 98.00-107.00 21.00-32.00 8.50-10.10 138 3.7 105 26.9 9.2 PT (sec) INR (PTT:PT) 9.80-11.60 0.90-1.10 10.9 1 CPK-MB (ng/ML) 0.50-3.60 0.9 Medication Medication Total Dose (Bolus/Oral) Medication Total Dosage/Unit 1% XYLOCAINE 20 mL VERSED 2 mg Medications (Bolus/Oral) Medication Time Given Dosage/Unit Administered By Reason VERSED 01/14/2017 7:46:51 AM 1 mg Kellie Welch 1 mg VERSED given in lab by Kellie Welch RN in Left Antecubital via Peripheral IV. Ordered by Kishore Alvarez. VERSED 01/14/2017 7:50:42 AM 1 mg Kishore Jaime 1 mg VERSED given in lab by Kishore Jaime in Left Antecubital via Peripheral IV. 1% XYLOCAINE 01/14/2017 7:51:19 AM 20 mL Kellie Welch 20 mL 1% XYLOCAINE given in lab by Kellie Welch RN in Right Groin via Subcutaneous. Medication (Drip) Medication Time Given Dosage/Unit Concentration/Unit Diluent (ml) Solution IV Solutions 01/14/2017 7:18:44 AM 0 mL (IV) 250 NaCl .9 IV Solutions given in lab by Kellie Welch RN in Left Antecubital via Peripheral IV. Pump/Drip Fl ow = 20 ml/hr using NaCl .9. Ordered by Kishore Jaime. Initial Case Assessment Cardiovascular HR NIBP 97 132/85 Edema Present Skin color Skin None Normal Warm Dry Circulatory - Right Pulses Dorsalis Pedis Femoral 3 3 Scale (0,1,2,3,4,d) Circulatory - Left Pulses Dorsalis Pedis Femoral 3 3 Scale (0,1,2,3,4,d) Neurological State Oriented to time-place- Alert Moves all extremities person Respiration - General Respiration Rate SpO2 (%) (B/min) 18 99 Final Case Assessment Cardiovascular HR NIBP 69 116/74 Edema Present Skin color Skin None Normal Warm Dry Circulatory - Right Pulses Dorsalis Pedis Femoral 3 3 Scale (0,1,2,3,4,d) Circulatory - Left Pulses Dorsalis Pedis Femoral 3 3 Scale (0,1,2,3,4,d) Neurological State Oriented to time-place- Alert Moves all extremities person Respiration - General Respiration Rate SpO2 (%) (B/min) 14 95 Chronological Log Time Study Chronological Log 7:18:26 Patient arrived via Bed. 7:18:29 Patient Name, D.O.B, / Armband Verified By R.N. 7:18:29 Pre-op and post- op instructions given; patient acknowledges understanding of instructions. 7:18:31 Consent signed by the physician and the patient and verified by the Automation Mechanic staff. 7:18:35 Patient has been NPO for More than 6Hrs. 7:18:36 Skin Breakdown- 7:18:37 Patient Warmer Placed on the Table. 7:18:39 Alberto Prominences Protected 7:18:43 A # 20 IV was noted in the Antecubital (left). Grade = 0 IV Solutions given in lab by Mrache, Kellie, RN in Left Antecubital via Peripheral IV. Pump/D rip Flow = 20 ml/hr 7:18:44 using NaCl .9. Ordered by Kishore Jaime. 7:21:44 History and physical on the chart or being dictated. Assessment: Initial Case, HR=97 BPM, FYYU=229/85 mmhg, Edema=None, Color=Normal, Skin = Warm, D ry Right Pulses: Tommy Ped=3, Femoral=3 7:21:45 Left Pulses: Tommy Ped=3, Femoral=3 Neurological: State=Alert, Ox3, KONG Respiration: Resp=18 B/min, SpO2=99 % Vitals capture started with the following parameters, Patient=Adult, Interval=5 min, Initial Pr nwcwhf=835 mmHg, 7::46 Deflation Rate=5 mmHg 7:21:50 Reference ECG taken 7:22:18 HR=89 bpm, BFQA=117/85 mmhg, SpO2=99.0 %, Resp=19 B/min, Pain=0, Darin=10, Bess=2 7:27:17 HR=73 bpm, PTCG=286/84 mmhg, SpO2=98.0 %, Resp=13 B/min, Pain=0, Darin=10, Bess=2 7:27:50 Bilateral groins prepped with 2% chlorhexidine, and with a 3 min. waiting time. 7:32:18 HR=72 bpm, QBEG=373/83 mmhg, SpO2=98.0 %, Resp=18 B/min, Pain=0, Darin=10, Bess=2 7:37:21 HR=81 bpm, NVVG=123/78 mmhg, SpO2=99.0 %, Resp=11 B/min, Pain=0, Darin=10, Bess=2 7:38:51 Pressure channel 1 zeroed. 7:42:20 HR=75 bpm, LUBE=511/74 mmhg, SpO2=98.0 %, Resp=12 B/min, Pain=0, Darin=10, Bess=2 7:46:51 1 mg VERSED given in lab by Kellie Welch, RN in Left Antecubital via Peripheral IV. Orde red by Kishore Jaime. 7:47:19 HR=74 bpm, YHAK=753/77 mmhg, SpO2=96.0 %, Resp=14 B/min, Pain=0, Darin=10, Bess=2 Time Out. Correct patient, correct procedure,correct physician, power injector loaded with contr ast with surgical team 7:49:50 present. Time Out Concurred by , individual staff in procedure 7:49:55 Case Start 7:50:42 1 mg VERSED given in lab by Kishore Jaime in Left Antecubital via Peripheral IV. 7:51:19 20 mL 1% XYLOCAINE given in lab by Kellie Welch, BRANDT in Right Groin via Subcutaneous. 7:52:21 HR=64 bpm, XVMS=821/73 mmhg, SpO2=95.0 %, Resp=12 B/min, Pain=0, Darin=10, Bess=2 7:54:14 Access site was Right Femoral Artery. 7:54:22 A SHEATH, FR6.5 PRELUDE 11CM FR 6.5 was advanced into the Fem Art (right) using the Modified Seldinger technique. 7:54:29 A catheter was advanced over a wire. contrast was used for injections. Recorded Pressure: LV, HR=72, Condition=Condition 1 7:55:00 (Left Ventricle) LV 95/-1/4 7:55:58 The LV was injected at 10 cc/sec for a total of 40. OMNIPAQUE, 350 MG, 50ML 50ML used. Recorded Pressure: LV, Ao, HR=70, Condition=Condition 1 7:56:45 (Left Ventricle) LV 104/2/10, (Aorta) Ao 106/66/84 7:57:05 Catheter was removed 7:57:20 HR=71 bpm, YMFT=254/75 mmhg, SpO2=95.0 %, Resp=19 B/min, Pain=0, Darin=10, Bess=2 A JL 4.0 INFINITI CATHETER FR 6 was advanced over a wire. OMNIPAQUE, 350 MG, 100ML 100ML was use d for 7:57:36 injections. Recorded Pressure: Ao, HR=72, Condition=Condition 1 7:58:11 (Aorta) Ao 102/67/85 7:58:55 The LCA was injected and visualized at various angles. OMNIPAQUE, 350 MG, 100ML 100ML used. 8:01:14 Catheter was removed A JR 4.0 INFINITI CATHETER FR 6 was advanced over a wire. OMNIPAQUE, 350 MG, 100ML 100ML was use d for 8:01:15 injections. 8:02:19 HR=76 bpm, MRRP=316/78 mmhg, SpO2=95.0 %, Resp=19 B/min, Pain=0, Darin=10, Bess=2 8:02:29 The RCA was injected and visualized at various angles. OMNIPAQUE, 350 MG, 100ML 100ML used. 8:04:32 The SVG-DIAG was injected and visualized at various angles. OMNIPAQUE, 350 MG, 100ML 100ML u sed. 8:05:35 The SVG-OM was injected and visualized at various angles. OMNIPAQUE, 350 MG, 100ML 100ML use d. om and circ 8:07:22 HR=78 bpm, MFWH=611/76 mmhg, SpO2=97.0 %, Resp=10 B/min, Pain=0, Darin=10, Bess=2 8:08:15 Catheter was removed A DANDRE INFINITI CATHETER FR 6 was advanced over a wire. OMNIPAQUE, 350 MG, 100ML 100ML was used f or 8:08:16 injections. 8:12:21 HR=69 bpm, JPLX=529/72 mmhg, SpO2=96.0 %, Resp=11 B/min, Pain=0, Darin=10, Bess=2 8:13:44 The TANNER-LAD was injected and visualized at various angles. OMNIPAQUE, 350 MG, 100ML 100ML u sed. 8:13:53 Catheter was removed 8:17:22 HR=73 bpm, WADX=012/71 mmhg, SpO2=96.0 %, Resp=20 B/min, Pain=0, Darin=10, Bess=2 8:22:17 Catheter(s) removed without difficulty 8:22:21 HR=71 bpm, WHGM=236/79 mmhg, SpO2=97.0 %, Resp=15 B/min, Pain=0, Darin=10, Bess=2 8:24:12 An injection in the Fem Art (right) was made through the SHEATH, FR6.5 PRELUDE 11CM FR 6.5 . 8:24:39 ANGIOSEAL, FR6 VIP FR 6 placement in the Fem Art (right) 8:26:31 Case End 8:26:35 Sterile dressing applied to site 8:26:37 No case complications noted. 8:26:40 Cine recording checked. 8:27:02 Bedside Report will be given. 8:27:03 Implantable Device card placed in patient's chart. 8:27:05 Contrast Scanned 8:27:08 A Left Heart Cath was performed. 8:27:22 HR=69 bpm, FCRW=778/74 mmhg, SpO2=95.0 %, Resp=14 B/min, Pain=0, Darin=10, Bess=2 Assessment: Final Case, HR=69 BPM, DOMN=646/74 mmhg, Edema=None, Color=Normal, Skin = Warm, Dr y Right Pulses: Tommy Ped=3, Femoral=3 8:32:16 Left Pulses: Tommy Ped=3, Femoral=3 Neurological: State=Alert, Ox3, KONG Respiration: Resp=14 B/min, SpO2=95 % 8:32:22 Vitals capture stopped. 8:33:23 [facility] - Contrast Media Used In Study Contrast Total Opened (mL) Total Used (mL) Total Wasted (mL) Omnipaque 150 150 0 End Study - Maximum Contrast Load Max Contrast Load (mL) 625.0 End Study - Radiation Exposure Fluoro Time (minutes) 6.5 End Study - Patient Disposition Complications Transferred To Interventional Outcome No Telemetry Bed No attempt made
[2017-01-14] MEDS ORDERED: IOHEXOL 350 MG/ML 100 ML BTL (for Cath Lab) OTHER ONE (08:40)
[2017-01-14] MEDS ORDERED: SODIUM CHLOR 0.9% 1000 ML INJ 1,000 ML IV SCH (08:41)
[2017-01-14] MEDS ORDERED: MISC INFORMATION XX ONE (08:45)
[2017-01-14] MEDS ORDERED: ONDANSETRON HCL 4 MG/2 ML VIAL IV PRN (08:45)
[2017-01-14] MEDS ORDERED: oxyCODONE/ACETAMINOPHEN 5 MG/325 MG TAB PO PRN (08:45)
[2017-01-14] MEDS ORDERED: PANTOPRAZOLE SOD 40 MG DELAYED RELEASE TAB PO SCH (09:00)
[2017-01-14] MEDS ORDERED: BACITRACIN OINT 0.9 GM PKT TOP ONE (09:00)
[2017-01-14] MEDS ORDERED: ISOSORBIDE MONONITRATE 60 MG TAB PO SCH (09:00)
[2017-01-14] MEDS ORDERED: PARoxetine HCL 20 MG TAB PO SCH (09:00)
--- NOTE | 2017-01-14 10:38 | MA ---
cc: STALIN SCHWARTZ M.D. DATE: 01/14/2017 PROCEDURE PERFORMED Left heart catheterization, left ventriculography, coronary angiography, bypass graft angiography including left internal mammary arteriography. BRIEF HISTORY Kris Posada is a 51-year-old man with a strong family history of coronary artery disease, who developed multivessel disease and required bypass surgery August 23, 2015. He comes in now with unstable angina with a nuclear stress test showing inferolateral ischemia. DESCRIPTION OF PROCEDURE The patient was brought to the cardiac laborer petroleum refinery in a fasting state. Using 1% lidocaine for local anesthesia a 6-1/2 [place] sheath was inserted in the right femoral artery requiring only a single stick. Left ventricular pressure was then recorded using a pigtail catheter followed by left ventriculography and then a pullback. Coronary angiography was then performed using a left four Carmelo for left coronary artery and a JR4 for the right coronary artery. Angiography of the vein grafts was performed using a right 4 Carmelo catheter. Angiography of the internal mammary bypass was performed using an DANDRE catheter. His films were studied ___ medical therapy is being elected. Angiography was then obtained of the right femoral artery via the sheath followed by uncomplicated Angio-Seal closure. There were no complications. FINDINGS 1. Hemodynamics. Left ventricular pressure was 104/2 with an end-diastolic pressure of 10. Aortic pressure is 102/67 with a mean of 85. 2. Left ventriculography. Left ventriculography shows preserved left ventricular function. There is diaphragmatic hypokinesis. Estimated ejection fraction of 60%. There is no mitral regurgitation. 3. Coronary angiography. The left main coronary artery appears normal. It bifurcates into the LAD and circumflex vessels. The LAD has about 60% ostial and proximal disease. The mid-LAD probably also has about 60% disease. There is diffuse irregularities leading up to the second diagonal branch with competitive flow in the second diagonal branch on the bypass. First diagonal branch is small. The LAD distal to the second diagonal branch is diminutive in size only about 1 mm and stops short of the apex. There is occlusion of the internal mammary bypass with faint retrograde filling at the site of occlusion. The circumflex artery is severely and diffusely diseased. There is 75% proximal stenosis, then where the major obtuse marginal branch is there is ectasia before this and then a 90% stenosis right before the marginal branch. After the marginal branch there is an additional 80% stenosis. The distal circumflex vessel is diffusely diseased up until the posterolateral branch which has competitive flow. The right coronary artery is dominant. This vessel demonstrates mild diffuse disease. There is diffuse 20% mid disease. It is a large caliber vessel even distally, it gives off a large posterior descending artery branch that courses all the way out to the apex and there is no significant obstruction. Posterolateral branches of the right coronary artery are small. 4. Bypass grafts. There is a widely patent sequential vein graft which is connected [id number] to the major obtuse marginal branch and end-to-side to a posterolateral branch. The graft itself has slight irregularities and is large caliber. The anastomosis to the obtuse marginal branch is widely patent. The anastomosis to the posterolateral branch is patent. However, antegrade flow from the anastomosis shows a very small vessel. The saphenous vein graft to the diagonal branch is widely patent. It does provide retrograde flow back to the LAD which provides some flow to the [place] distal LAD. The distal LAD is diffusely small caliber as described above. The fourth graft is a left internal mammary graft to the LAD. This graft is totally occluded. CONCLUSION 1. Normal hemodynamics. 2. Preserved left ventricular function with diaphragmatic hypokinesis. 3. Severe two-vessel coronary artery disease. 4. Three out of four patent bypass grafts. PLAN Medical management. I am going to add Imdur 60 mg daily. He can continue his beta-peter and stop his lisinopril. MD LIMA Sanchez/ROGE /8:49 AM /10:16 AM
[2017-01-14] MEDS: ASPIRIN 325 MG TAB PO SCH (10:42)
[2017-01-14] MEDS: METOPROLOL TARTRATE 25 MG TAB PO SCH (10:43)
--- NOTE | 2017-01-14 15:07 | HHI.DCPOC ---
Discharge Care Plan Diagnosis: (1) Chest pain (2) Anxiety (3) Coronary artery disease Goals to Promote Your Health * To prevent worsening of your condition and complications * To maintain your health at the optimal level Directions to Meet Your Goals Take your medications as prescribed Follow your dietary instruction Follow activity as directed Keep your appointments as scheduled Take your immunizations and boosters as scheduled If your symptoms worsen call your PCP, if no PCP go to Urgent Care Center or Emergency Room Smoking is Dangerous to Your Health. Avoid second hand smoke Call the 24-hour hour crisis hotline for domestic abuse at [place] DO Jan 14, 2017 15:07
--- NOTE | 2017-01-14 15:11 | HHI.DS ---
Discharge Summary Admission Date Jan 11, 2017 at 20:00 Admitting Diagnosis chest pain Procedures est heart cath Brief History had cp came to ed nuc est pos defect had cath 100 fair cleared to dc home by cardiology with agressive medical management CBC/BMP: 01/11/17181901/11/171819 Significant Findings Laboratory Tests Test 01/11/17 01/11/17 01/12/17 18:20 21:26 00:10 Eosinophils (%) (Auto) 4.9 % (0.0-4.0) Troponin I LESS THAN 0.02 LESS THAN 0.02 LESS THAN 0.02 NG/ML NG/ML NG/ML (0.02-0.05) (0.02-0.05) (0.02-0.05) Pt Condition on Discharge: Good Discharge Disposition: Discharge Home Discharge Instructions DIET: Follow Instructions for: Heart Healthy Diet Activities you can perform: Regular-No Restrictions Activities to avoid: Strenuous Activity Additional Information ok wy home fu dr heard fu grw this saturday continue current medications pt has these at home [facility] [place] DO Jan 14, 2017 15:11
--- NOTE | 2017-01-16 07:38 | TR ---
Date Performed: 01/12/2017 Time Performed: 13:27:32 DOCTOR: Jovan Guzman DRUG LIST: CLINICAL HISTORY: REASON FOR TEST: Chest pain REASON FOR ENDING: OBSERVATION: CONCLUSION: Jackson protocol completed. Stopped sec to exceeding target heart rate and leg fatigue . Maximum HO=024 Target HR Achieved=87.0% Maximum GZ=614/84 Total Exercise Time=7:31. No reprod chest discomfort. Good exercise tolerance. St depression anterior/lateral prior to exam. Normal bp respons e. Recovery quick and unremarkable. Nuclear image pending. COMMENTS: Patient exercised using the Jackson protocol. No electrocardiographic changes were seen to suggest ischemia. Hemodynamic response to exercise was normal. No significant arrhythmia was prese nt.
== END 2017-01-14 15:35 | disposition home or self-care (01) ==
LOC: NEPC 17:31 → NEDA 20:00 → NEPFCDU 20:24 → HCIS 01-14 07:13
PROVIDERS: ADMIT Family Medicine; ATTEND Family Medicine
DX: R07.89 Other chest pain (principal); F43.9 Reaction to severe stress, unspecified; I45.10 Unspecified right bundle-branch block; R19.7 Diarrhea, unspecified; R10.9 Unspecified abdominal pain; R11.0 Nausea; R94.31 Abnormal electrocardiogram [ECG] [EKG]; R00.1 Bradycardia, unspecified; K08.89 Other specified disorders of teeth and supporting structures; I73.9 Peripheral vascular disease, unspecified; I25.110 Atherosclerotic heart disease of native coronary artery with unstable angina pectoris; I10 Essential (primary) hypertension; E78.5 Hyperlipidemia, unspecified; F41.9 Anxiety disorder, unspecified; Z79.899 Other long term (current) drug therapy; Z79.82 Long term (current) use of aspirin; Z87.891 Personal history of nicotine dependence; Z82.49 Family history of ischemic heart disease and other diseases of the circulatory system; Z86.718 Personal history of other venous thrombosis and embolism; Z95.1 Presence of aortocoronary bypass graft
CPT/HCPCS: 71010; 78452; 80048; 82550; 82552; 83735; 84484; 85025; 85610; 85730; 93005; 93017; 93458; 99285; A9502; C1760; C1769; C1893; G0269; G0378; J1644; J1650; J2250; J3010; J7030; Q9967

== ENCOUNTER 2017-07-29 11:17 | Observation (INO) | payer BC ==
[~2017-07-29] VITALS: Ht 177.8 cm; Wt 77.3 kg
[~2017-07-29 11:17] MED LIST changes: +ASPI-516 CHEW; -ASPI81TA82 PO; -ATOR20TA42 PO; +ATOR40TA16 PO; -CLOP75 PO; +LISI-519 PO; -LISI5 PO; -METO25 PO; +METO25TA3 PO; -PROT40TA PO
[2017-07-29 11:19] VITALS: BP 116/75; PULSE 64; RESP 16; TEMP 98.1; O2SAT 99
[2017-07-29 11:50] VITALS: BP 123/84; PULSE 67; RESP 17; TEMP 98; O2SAT 99
[2017-07-29] MEDS ORDERED: ASPIRIN 325 MG TAB PO ONE (12:00)
[2017-07-29] MEDS ORDERED: PARO20TA2 PO (12:02)
[2017-07-29] MEDS ORDERED: ISOS30TA3 PO (12:02)
--- NOTE | 2017-07-29 12:18 | PD ---
HPI Chief Complaint: Musculoskeletal Complaint Time Seen by Provider: 11:41 Travel History International Travel<30 days: No Contact w/Intl Traveler<30days: No Traveled to known affect area: No History of Present Illness HPI 51-year-old male that presents to the ED for evaluation of right leg pain with numbness and coldness for the past 5 days. Per patient since about Saturday his been having symptoms. Per patient his been working a lot recently because of the radius. He states that he had a recent [place] [address] Hughes and follows with Dr. Jaime of cardiology. On December of last year he had another heart That shows some stenosis and had to have some stents in place. Per patient he has been compliant with his medications. Per patient since Saturday his been noticing that he's having some shortness of breath with exertion as well as some arm and leg discomfort as he feels like he is winded. Per patient this is an issue for him and this is concerning as per patient is of the same symptoms he had originally when he had the bypass. He did not have chest pain at the time. He denies any chest pain this time. She denies ever being told that he had peripheral arterial disease. Discomfort per patient is 4 out of 10. More on the right leg. Per patient the symptoms appeared to be more severe on the right leg. He has no allergies to medication. No urinary or bowel movement issues. No nausea or vomiting. No recent travel. Per patient he is off his blood thinners secondary to having a dental procedure on Saturday. PFSH Past Medical History Hx Anticoagulant Therapy: Yes (precautionary for dvt) Cardiac Catheterization: Yes (no stents) Cardiovascular Problems: Yes (CABG, HTN, hyperlipidemia) High Cholesterol: Yes Chest Pain: Yes Diminished Hearing: No Deep Vein Thrombosis: Yes Hypertension: Yes Immunizations Current: Yes Tetanus Vaccination: Unknown ?: Unknown Past Surgical History Coronary Artery Bypass Graft: Yes (QUAD) Social History Alcohol Use: Yes (SELDOM) Tobacco Use: No Substance Use: No Allergies-Medications (Allergen,Severity, Reaction): Coded Allergies: No Known Allergies (Unverified Adverse Reaction, Unknown, 07/29/17) Reported Meds & Prescriptions Reported Meds & Active Scripts Active Reported Isosorbide Mononitrate ER (Isosorbide Mononitrate) 30 Mg Maria Elena 30 Mg PO DAILY Paroxetine (Paroxetine HCl) 20 Mg Tab 20 Mg PO DAILY Aspirin 81 Mg Chew 81 Mg CHEW ONCE Atorvastatin (Atorvastatin Calcium) 40 Mg Tab 40 Mg PO HS Metoprolol Tartrate 25 Mg Tab 25 Mg PO DAILY Lisinopril 5 Mg Tab 5 Mg PO DAILY Review of Systems Except as stated in HPI: all other systems reviewed are Neg Physical Exam Narrative GENERAL: SKIN: Warm and dry. HEAD: Atraumatic. Normocephalic. EYES: Pupils equal and round. No scleral icterus. No injection or drainage. ENT: No nasal bleeding or discharge. Mucous membranes pink and moist. Tongue is midline. No uvula deviation. NECK: Trachea midline. No JVD. CARDIOVASCULAR: Regular rate and rhythm. No murmurs, S3, S4. RESPIRATORY: No accessory muscle use. Clear to auscultation. Breath sounds equal bilaterally. GASTROINTESTINAL: Abdomen soft, non-tender, nondistended. Hepatic and splenic margins not palpable. MUSCULOSKELETAL: Extremities without clubbing, cyanosis, or edema. No obvious deformities. Full range of motion of the upper and lower extremities bilaterally. Diminished pulses on the right leg compared to the left with Doppler and not palpable with fingers. Right leg does appear to be more cold than the left. Does appear to have longer capillary refill times. 2+ pulses in the right upper extremity as well as the left upper extremity. NEUROLOGICAL: Awake and alert. No obvious cranial nerve deficits. Motor grossly within normal limits. Five out of 5 muscle strength in the arms and legs. Normal speech. PSYCHIATRIC: Appropriate mood and affect; insight and judgment normal. Data Data Last Documented VS Vital Signs Date Time Temp Pulse Resp B/P (MAP) Pulse Ox O2 Delivery O2 Flow Rate FiO2 07/29/17 11:50 98.0 67 17 123/84 (97) 99 Room Air Orders Orders Electrocardiogram (07/29/17 11:59) Complete Blood Count With Diff (07/29/17 11:59) Comprehensive Metabolic Panel (07/29/17 11:59) Ckmb (Isoenzyme) Profile (07/29/17 11:59) Troponin I (07/29/17 11:59) Prothrombin Time / Inr (Pt) (07/29/17 11:59) Act Partial Throm Time (Ptt) (07/29/17 11:59) Magnesium (Mg) (07/29/17 11:59) Chest, Single Ap (07/29/17 11:59) Iv Access Insert/Monitor (07/29/17 11:59) Ecg Monitoring (07/29/17 11:59) Oximetry (07/29/17 11:59) Cta Runoff W Iv Contrast W 3d (07/29/17 ) Aspirin (Aspirin) (07/29/17 12:00) Iohexol 350 Inj (Omnipaque 350 Inj) (07/29/17 14:12) Admit Order (Ed Use Only) (07/29/17 15:47) Labs Laboratory Tests Test 07/29/17 12:30 White Blood Count 6.4 TH/MM3 Red Blood Count 4.82 MIL/MM3 Hemoglobin 15.0 GM/DL Hematocrit 43.3 % Mean Corpuscular Volume 89.9 FL Mean Corpuscular Hemoglobin 31.1 PG Mean Corpuscular Hemoglobin Concent 34.6 % Red Cell Distribution Width 12.7 % Platelet Count 273 TH/MM3 Mean Platelet Volume 7.8 FL Neutrophils (%) (Auto) 67.7 % Lymphocytes (%) (Auto) 23.1 % Monocytes (%) (Auto) 5.8 % Eosinophils (%) (Auto) 2.8 % Basophils (%) (Auto) 0.6 % Neutrophils # (Auto) 4.3 TH/MM3 Lymphocytes # (Auto) 1.5 TH/MM3 Monocytes # (Auto) 0.4 TH/MM3 Eosinophils # (Auto) 0.2 TH/MM3 Basophils # (Auto) 0.0 TH/MM3 CBC Comment DIFF FINAL Differential Comment Prothrombin Time 10.7 SEC Prothromb Time International Ratio 1.1 RATIO Activated Partial Thromboplast Time 24.1 SEC Blood Urea Nitrogen 10 MG/DL Creatinine 0.80 MG/DL Random Glucose 123 MG/DL Total Protein 7.3 GM/DL Albumin 3.9 GM/DL Calcium Level 9.5 MG/DL Magnesium Level 2.3 MG/DL Alkaline Phosphatase 68 U/L Aspartate Amino Transf (AST/SGOT) 14 U/L Alanine Aminotransferase (ALT/SGPT) 13 U/L Total Bilirubin 0.5 MG/DL Sodium Level 138 MEQ/L Potassium Level 3.9 MEQ/L Chloride Level 105 MEQ/L Carbon Dioxide Level 26.7 MEQ/L Anion Gap 6 MEQ/L Estimat Glomerular Filtration Rate 103 ML/MIN Total Creatine Kinase 71 U/L Troponin I LESS THAN 0.02 NG/ML MDM Medical Decision Making Medical Screen Exam Complete: Yes Emergency Medical Condition: Yes Medical Record Reviewed: Yes Interpretation(s) CBC & BMP Diagram 07/29/17 12:30 Total Protein 7.3, Albumin 3.9, Calcium Level 9.5, Magnesium Level 2.3, Alkaline Phosphatase 68, Aspartate Amino Transf (AST/SGOT) 14 L, Alanine Aminotransferase (ALT/SGPT) 13, Total Bilirubin 0.5 troponin and CKMB negative EKG shows sinus rhythm with no sign of acute ischemia or arrhythmia by me and attending. coags WNL Last Impressions Chest X-Ray 07/29/17 1159 Signed Impressions: Service Date/Time: Saturday, July 29, 2017 12:08 - CONCLUSION: No acute disease. Patient is again noted to be status post median sternotomy. Jamaal Saha MD Aorta w/Runoff CTA 07/29/17 0000 Signed Impressions: Service Date/Time: Saturday, July 29, 2017 13:58 - CONCLUSION: 1. Normal CT angiogram and runoff. There is only minimal atherosclerotic plaquing. Mg Resendiz MD Differential Diagnosis Peripheral artery disease versus chest pain versus ACS versus angina versus unstable angina versus leg pain versus radiculopathy Narrative Course 51-year-old male that presents to the ED for evaluation of leg pain and numbness. Patient was properly examined and was found to have signs and symptoms concerning for peripheral artery disease. Pulses are palpated with Doppler but not with finger. There are definite diminished even with Doppler. Patient does have a history of significant arterial disease on the heart. Very likely patient has peripheral artery disease as well. Patient states this is same symptoms he had when he had his CABG. We'll do ACS as well as peripheral artery disease workup. Patient agrees with this. Patient was given aspirin by mouth. Labs and imaging showed no sign of acute disease. Did review the patient's medical records and she had a heart catheter on December but no stenting. Labs and imaging were essentially unremarkable here. Patient did have significant heart That showed 90% stenosis and at the time was recommended medical management. Patient's having his symptoms that are similar to his previous event. He does not have any chest pain but he says that he gets chest pain on and off. Case was discussed in my attending Dr Bess who recommends admission for chest pain workup. Patient agrees with plan. Patient will be admitted to Dr Sparrow who agrees to admission. Diagnosis Primary Impression: Chest pain Qualified Codes: R07.9 - Chest pain, unspecified Admitting Information Admitting Physician Requests: Clifford Smyth Jul 29, 2017 12:18
--- NOTE | 2017-07-29 12:21 | RADRPT ---
EXAM DATE/TIME: 07/29/2017 12:08 [facility] COMPARISON: CHEST SINGLE AP, January 11, 2017, 18:30. INDICATIONS : Calf and right foot pain. MEDICAL HISTORY : None. SURGICAL HISTORY : CABG. ENCOUNTER: Initial ACUITY: 1 week PAIN SCORE: 0/10 LOCATION: Bilateral chest FINDINGS: A single view of the chest demonstrates the lungs to be symmetrically aerated without evidence of mas s, infiltrate or effusion. The cardiomediastinal contours are unremarkable. Osseous structures are intact. CONCLUSION: No acute disease. Patient is again noted to be status post median sternotomy. Jamaal Saha MD on July 29, 2017 at 12:19 Board Certified Radiologist. This report was verified electronically.
[2017-07-29 12:34] LABS: AUTOMATED NEUTROPHIL # 4.3 TH/MM3 (1.8-7.7); BASOPHIL % 0.6 % (0.0-2.0); EOSINOPHIL # 0.2 TH/MM3 (0-0.4); EOSINOPHIL % 2.8 % (0.0-4.0); HEMATOCRIT 43.3 % (39.0-51.0); LYMPH % 23.1 % (9.0-44.0); LYMPHOCYTE # 1.5 TH/MM3 (1.0-4.8); MEAN CELL VOLUME 89.9 FL (80.0-100.0); MEAN CORPUSCULAR HEMOGLOBIN 31.1 PG (27.0-34.0); MEAN CORPUSCULAR HGB CONC 34.6 % (32.0-36.0); MEAN PLATELET VOLUME 7.8 FL (7.0-11.0); MONO % 5.8 % (0.0-8.0); MONOCYTE # 0.4 TH/MM3 (0-0.9); NEUT % 67.7 % (16.0-70.0); PLATELET COUNT 273 TH/MM3 (150-450); RED BLOOD COUNT 4.82 MIL/MM3 (4.50-5.90); RED CELL DISTRIBUTION WIDTH 12.7 % (11.6-17.2); WHITE BLOOD COUNT 6.4 TH/MM3 (4.0-11.0)
[2017-07-29 12:44] LABS: INTERNATIONAL NORMALIZED RATIO 1.1 RATIO; PROTHROMBIN TIME - PATIENT 10.7 SEC (9.8-11.6)
[2017-07-29 13:00] LABS: ALBUMIN 3.9 GM/DL (3.4-5.0); ALT (GPT) 13 U/L (12-78); AST (GOT) 14 U/L (15-37); BICARBONATE 26.7 MEQ/L (21.0-32.0); BLOOD UREA NITROGEN 10 MG/DL (7-18); CALCIUM 9.5 MG/DL (8.5-10.1); CHLORIDE 105 MEQ/L (98-107); GLOMERULAR FILTRATION RATE 103 ML/MIN (>89); GLUCOSE,RANDOM 123 MG/DL (74-106); MAGNESIUM 2.3 MG/DL (1.5-2.5); SODIUM (NA) 138 MEQ/L (136-145)
[2017-07-29 13:04] LABS: ALKALINE PHOSPHATASE 68 U/L (45-117); TOTAL BILIRUBIN ADULT 0.5 MG/DL (0.2-1.0); TOTAL PROTEIN 7.3 GM/DL (6.4-8.2); TROPONIN I LESS THAN 0.02 NG/ML (0.02-0.05)
[2017-07-29] MEDS ORDERED: IOHEXOL 350 MG/ML 10 ML VIAL (for RAD DIAG) IVCONTRAST ONE (14:12)
--- NOTE | 2017-07-29 15:41 | RADRPT ---
EXAM DATE/TIME: 07/29/2017 13:58 [facility] COMPARISON: CTA RUNOFF W 3D RECON, August 14, 2015, 23:53. INDICATIONS : Right leg and foot pain, evaluate for occlusion. IV CONTRAST: 92 cc Omnipaque 350 (iohexol) IV RADIATION DOSE: 10.45 CTDIvol (mGy) MEDICAL HISTORY : Cardiovascular disease. Hypertension. Diverticulosis. SURGICAL HISTORY : None. ENCOUNTER: Initial ACUITY: 4 - 6 days PAIN SCALE: 5/10 LOCATION: Right Foot, lower leg TECHNIQUE: Volumetric scanning was performed using a multi-row detector CT scanner. The data was post processed with a variety of visualization algorithms including full volume maximum intensity projection, multi -planar sliding thin slab reformation, curved planar reformation, and surface rendering techniques. Using automated exposure control and adjustment of the mA and/or kV according to patient size, radiat ion dose was kept as low as reasonably achievable to obtain optimal diagnostic quality images. DICO M format image data is available electronically for review and comparison. FINDINGS: Abdominal aorta: The celiac and SMA origins are widely patent. There are single renal arteries bilaterally. The renal arteries are widely patent. The infrarenal aorta is normal in caliber. The DANDRE is patent. There is on ly minimal atherosclerotic plaquing. Pelvis: The common iliac, internal iliac and external iliac circulation demonstrates only minimal atheroscler otic plaquing and is adequate in caliber bilaterally. Right leg: The right common femoral, profunda femoral, superficial femoral and popliteal arteries are widely pat ent. All 3 trifurcation vessels are patent down into the foot. Left leg: The left common femoral, profunda femoral, superficial femoral and popliteal arteries are widely baer nt. All 3 trifurcation vessels are patent down into the foot. CT source data: The solid organs of the abdomen are grossly intact. There is no retroperitoneal adenopathy. No free a ir or free fluid is seen. CONCLUSION: 1. Normal CT angiogram and runoff. There is only minimal atherosclerotic plaquing. Mg Resendiz MD on July 29, 2017 at 15:34 Board Certified Radiologist. This report was verified electronically.
[2017-07-29] MEDS ORDERED: LACTULOSE SYRUP 20 GM/30 ML CUP PO PRN (16:30)
[2017-07-29] MEDS ORDERED: SODIUM CHLORIDE 0.9% FLUSH 10 ML FLUSH IV FLUSH PRN (16:30)
[2017-07-29] MEDS ORDERED: ACETAMINOPHEN 325 MG TAB PO PRN (16:30)
[2017-07-29] MEDS ORDERED: MAGNESIUM HYDROXIDE SUSP 30 ML CUP PO PRN (16:30)
[2017-07-29] MEDS ORDERED: SENNOSIDES 8.6 MG TAB PO PRN (16:30)
[2017-07-29] MEDS ORDERED: ONDANSETRON HCL 4 MG/2 ML VIAL IVP PRN (16:30)
[2017-07-29] MEDS ORDERED: NALOXONE HCL 0.4 MG/ML AMP IV PUSH PRN (16:30)
[2017-07-29] MEDS ORDERED: BISACODYL 10 MG SUPP RECTAL PRN (16:30)
[2017-07-29] MEDS ORDERED: ENOXAPARIN SODIUM 40 MG/0.4 ML SYRINGE SQ SCH (17:00)
[2017-07-29 17:44] VITALS: BP 101/62; PULSE 70; RESP 17; O2SAT 97
[2017-07-29 20:47] VITALS: BP 122/72; PULSE 72; RESP 16; TEMP 98.1; O2SAT 98
--- NOTE | 2017-07-29 20:50 | HHI.HP ---
History of Present Illness Primary Care Physician Humble Sparrow, DO Admission Diagnosis angina ecquivalent?, ACS history, significant vessel disease Diagnoses: History of Present Illness r leg and chest pain Review of Systems Cardiovascular: COMPLAINS OF: Chest pain Musculoskeletal: COMPLAINS OF: Muscle aches Past Family Social History Allergies: Coded Allergies: No Known Allergies (Unverified Allergy, Unknown, 07/29/17) Past Medical History CAD HTN Past Surgical History MULTIPLE CARDIAC STENTS Reported Medications Reported Meds & Active Scripts Active Reported Isosorbide Mononitrate ER (Isosorbide Mononitrate) 30 Mg Maria Elena 30 Mg PO DAILY Paroxetine (Paroxetine HCl) 20 Mg Tab 20 Mg PO DAILY Aspirin 81 Mg Chew 81 Mg CHEW ONCE Atorvastatin (Atorvastatin Calcium) 40 Mg Tab 40 Mg PO HS Metoprolol Tartrate 25 Mg Tab 25 Mg PO DAILY Lisinopril 5 Mg Tab 5 Mg PO DAILY Active Ordered Medications Inpatient Medications Acetaminophen (Tylenol) 650 mg Q4H PRN PO TEMP > 100.4; Start 07/29/17 at 16:30 Aspirin (Aspirin) 325 mg ONCE ONCE PO Last administered on 07/29/17at 12:12; Start 07/29/17 at 12:00; Stop 07/29/17 at 12:01; Status DC Bisacodyl (Dulcolax Supp) 10 mg DAILY PRN RECTAL SEVERE CONSITIPATION; Start at 16:30 Enoxaparin Sodium (Lovenox Inj) 40 mg Q24H SQ Last administered on 07/29/17at 18 :21; Start 07/29/17 at 17:00 Lactulose (Lactulose Liq) 30 ml DAILY PRN PO SEVERE CONSITIPATION; Start at 16:30 Magnesium Hydroxide (Milk Of Magnesia Liq) 30 ml Q12H PRN PO Mild constipation ; Start 07/29/17 at 16:30 Naloxone HCl (Narcan Inj) 0.4 mg UNSCH PRN IV PUSH SEE LABEL COMMENTS; Start at 16:30 Ondansetron HCl (Zofran Inj) 4 mg Q6H PRN IVP NAUSEA OR VOMITING; Start at 16:30 Senna/Docusate Sodium (Areli-Colace) 1 tab BID PO ; Start 07/29/17 at 21:00 Sennosides (Senokot) 17.2 mg Q12H PRN PO Moderate constipation; Start 07/29/17 at 16:30 Sodium Chloride (NS Flush) 2 ml BID IV FLUSH ; Start 07/29/17 at 21:00 Family History NON CONTRIBUTATORY Social History smoker Physical Exam Vital Signs Vital Signs Date Time Temp Pulse Resp B/P (MAP) Pulse Ox O2 Delivery O2 Flow Rate FiO2 07/29/17 17:44 70 17 101/62 (75) 97 Room Air 07/29/17 11:50 98.0 67 17 123/84 (97) 99 Room Air 07/29/17 11:19 98.1 64 16 116/75 (89) 99 Physical Exam GENERAL: This is a well-nourished, well-developed patient, in no apparent distress. SKIN: No rashes, ecchymoses or lesions. Cool and dry. HEAD: Atraumatic. Normocephalic. No temporal or scalp tenderness. EYES: Pupils equal round and reactive. Extraocular motions intact. No scleral icterus. No injection or drainage. ENT: Nose without bleeding, purulent drainage or septal hematoma. Throat without erythema, tonsillar hypertrophy or exudate. Uvula midline. Airway patent. NECK: Trachea midline. No JVD or lymphadenopathy. Supple, nontender, no meningeal signs. CARDIOVASCULAR: Regular rate and rhythm without murmurs, gallops, or rubs. RESPIRATORY: Clear to auscultation. Breath sounds equal bilaterally. No wheezes , rales, or rhonchi. GASTROINTESTINAL: Abdomen soft, non-tender, nondistended. No hepato-splenomegaly , or palpable masses. No guarding. MUSCULOSKELETAL: Extremities without clubbing, cyanosis, or edema. No joint tenderness, effusion, or edema noted. r leg tender with diminished pulses NEUROLOGICAL: Awake and alert. Cranial nerves II through XII intact. Motor and sensory grossly within normal limits. Five out of 5 muscle strength in all muscle groups. Normal speech. Laboratory Laboratory Tests Test 07/29/17 12:30 07/29/17 17:48 White Blood Count 6.4 Red Blood Count 4.82 Hemoglobin 15.0 Hematocrit 43.3 Mean Corpuscular Volume 89.9 Mean Corpuscular Hemoglobin 31.1 Mean Corpuscular Hemoglobin Concent 34.6 Red Cell Distribution Width 12.7 Platelet Count 273 Mean Platelet Volume 7.8 Neutrophils (%) (Auto) 67.7 Lymphocytes (%) (Auto) 23.1 Monocytes (%) (Auto) 5.8 Eosinophils (%) (Auto) 2.8 Basophils (%) (Auto) 0.6 Neutrophils # (Auto) 4.3 Lymphocytes # (Auto) 1.5 Monocytes # (Auto) 0.4 Eosinophils # (Auto) 0.2 Basophils # (Auto) 0.0 CBC Comment DIFF FINAL Differential Comment Prothrombin Time 10.7 Prothromb Time International Ratio 1.1 Activated Partial Thromboplast Time 24.1 Blood Urea Nitrogen 10 Creatinine 0.80 Random Glucose 123 Total Protein 7.3 Albumin 3.9 Calcium Level 9.5 Magnesium Level 2.3 Alkaline Phosphatase 68 Aspartate Amino Transf (AST/SGOT) 14 Alanine Aminotransferase (ALT/SGPT) 13 Total Bilirubin 0.5 Sodium Level 138 Potassium Level 3.9 Chloride Level 105 Carbon Dioxide Level 26.7 Anion Gap 6 Estimat Glomerular Filtration Rate 103 Total Creatine Kinase 71 Troponin I LESS THAN 0.02 LESS THAN 0.02 Result Diagram: 07/29/17 1230 07/29/17 1230 Imaging Last Impressions Chest X-Ray 07/29/17 1159 Signed Impressions: Service Date/Time: Saturday, July 29, 2017 12:08 - CONCLUSION: No acute disease. Patient is again noted to be status post median sternotomy. Jamaal Saha MD Aorta w/Runoff CTA 07/29/17 0000 Signed Impressions: Service Date/Time: Saturday, July 29, 2017 13:58 - CONCLUSION: 1. Normal CT angiogram and runoff. There is only minimal atherosclerotic plaquing. Mg Resendiz MD Caprini VTE Risk Assessment Caprini VTE Risk Assessment: Mod/High Risk (score >= 2) Caprini Risk Assessment Model Point Value = 1 Point Value = 2 Point Value = 3 Point Value = 5 Age 41-60 Minor surgery BMI > 25 kg/m2 Swollen legs Varicose veins or History of unexplained or recurrent spontaneous Oral contraceptives or hormone replacement Sepsis (< 1 month) Serious lung disease, including pneumonia (< 1 month) Abnormal pulmonary function Acute myocardial infarction Congestive heart failure (< 1 month) History of inflammatory bowel disease Medical patient at bed rest Age 61-74 Arthroscopic surgery Major open surgery (> 45 min) Laparoscopic surgery (> 45 min) Malignancy Confined to bed (> 72 hours) Immobilizing plaster cast Central venous access Age >= 75 History of VTE Family history of VTE Factor V Leiden Prothrombin [id number] Lupus anticoagulant Anticardiolipin antibodies Elevated serum homocysteine Heparin-induced thrombocytopenia Other congenital or acquired thrombophilia Stroke (< 1 month) Elective arthroplasty Hip, pelvis, or leg fracture Acute spinal cord injury (< 1 month) Prophylaxis Regimen Total Risk Factor Score Risk Level Prophylaxis Regimen 0-1 Low Early ambulation 2 Moderate Order ONE of the following: *Sequential Compression Device (SCD) *Heparin 5000 units SQ BID 3-4 Higher Order ONE of the following medications: *Heparin 5000 units SQ TID *Enoxaparin/Lovenox 40 mg SQ daily (WT < 150 kg, CrCl > 30 mL/min) *Enoxaparin/Lovenox 30 mg SQ daily (WT < 150 kg, CrCl > 10-29 mL/min) *Enoxaparin/Lovenox 30 mg SQ BID (WT < 150 kg, CrCl > 30 mL/min) AND/OR *Sequential Compression Device (SCD) 5 or more Highest Order ONE of the following medications: *Heparin 5000 units SQ TID (Preferred with Epidurals) *Enoxaparin/Lovenox 40 mg SQ daily (WT < 150 kg, CrCl > 30 mL/min) *Enoxaparin/Lovenox 30 mg SQ daily (WT < 150 kg, CrCl > 10-29 mL/min) *Enoxaparin/Lovenox 30 mg SQ BID (WT < 150 kg, CrCl > 30 mL/min) AND *Sequential Compression Device (SCD) Assessment and Plan Assessment and Plan chest pain with r leg pain and decreased pulses pt has known CAD resume anticoag which was stopped by dentist trey diehl leg vascularity consult cardiology Humble Sparrow DO Jul 29, 2017 20:50
[2017-07-29] MEDS: DOCUSATE SODIUM 50 MG/SENNA 8.6 MG TAB PO SCH (21:00)
[2017-07-29] MEDS: SODIUM CHLORIDE 0.9% FLUSH 10 ML FLUSH IV FLUSH SCH (21:36)
[2017-07-30 07:08] VITALS: BP 110/65; PULSE 67; RESP 18; TEMP 98.1; O2SAT 95
[2017-07-30 07:23] LABS: ALBUMIN 3.4 GM/DL (3.4-5.0); AST (GOT) 17 U/L (15-37); BICARBONATE 25.8 MEQ/L (21.0-32.0); BLOOD UREA NITROGEN 15 MG/DL (7-18); CALCIUM 9.1 MG/DL (8.5-10.1); CHLORIDE 107 MEQ/L (98-107); CREATININE 0.84 MG/DL (0.60-1.30); GLOMERULAR FILTRATION RATE 97 ML/MIN (>89); GLUCOSE,RANDOM 90 MG/DL (74-106); SODIUM (NA) 140 MEQ/L (136-145)
[2017-07-30 07:25] LABS: ALT (GPT) 12 U/L (12-78)
[2017-07-30 07:27] LABS: ALKALINE PHOSPHATASE 62 U/L (45-117); TOTAL BILIRUBIN ADULT 0.4 MG/DL (0.2-1.0); TOTAL PROTEIN 6.5 GM/DL (6.4-8.2)
--- NOTE | 2017-07-30 08:42 | HHI.PR ---
Subjective Remarks Denies pain today to chest or B/L Le Objective Vital Signs Date Time Temp Pulse Resp B/P (MAP) Pulse Ox O2 Delivery O2 Flow Rate FiO2 07/30/17 07:08 98.1 67 18 110/65 (80) 95 07/29/17 20:47 98.1 72 16 122/72 (89) 98 07/29/17 17:44 70 17 101/62 (75) 97 Room Air 07/29/17 11:50 98.0 67 17 123/84 (97) 99 Room Air 07/29/17 11:19 98.1 64 16 116/75 (89) 99 Result Diagram: 07/29/17 1230 07/30/17 0545 Imaging Last 24 hours Impressions Chest X-Ray 07/29/17 1159 Signed Impressions: Service Date/Time: Saturday, July 29, 2017 12:08 - CONCLUSION: No acute disease. Patient is again noted to be status post median sternotomy. Jamaal Saha MD Objective Remarks GENERAL: This is a well-nourished, well-developed patient, in no apparent distress. SKIN: No rashes, ecchymoses or lesions. Cool and dry. HEAD: Atraumatic. Normocephalic. No temporal or scalp tenderness. EYES: Pupils equal round and reactive. Extraocular motions intact. No scleral icterus. No injection or drainage. ENT: Nose without bleeding, purulent drainage or septal hematoma. Throat without erythema, tonsillar hypertrophy or exudate. Uvula midline. Airway patent. NECK: Trachea midline. No JVD or lymphadenopathy. Supple, nontender, no meningeal signs. CARDIOVASCULAR: Regular rate and rhythm without murmurs, gallops, or rubs. RESPIRATORY: Clear to auscultation. Breath sounds equal bilaterally. No wheezes , rales, or rhonchi. GASTROINTESTINAL: Abdomen soft, non-tender, nondistended. No hepato-splenomegaly , or palpable masses. No guarding. MUSCULOSKELETAL: Extremities without clubbing, cyanosis, or edema. B/L le warm, pulses to RLE diminished NEUROLOGICAL: Awake and alert. Cranial nerves II through XII intact. Motor and sensory grossly within normal limits. Five out of 5 muscle strength in all muscle groups. Normal speech. Medications and IVs Current Medications Medications (Trade) Dose Ordered Sig/Jame Route Start Time Stop Time Status Last Admin (NS Flush) 2 ml UNSCH PRN IV FLUSH 07/29/17 16:30 (NS Flush) 2 ml BID IV FLUSH 07/29/17 21:00 07/29/17 21:36 (Tylenol) 650 mg Q4H PRN PO 07/29/17 16:30 (Zofran Inj) 4 mg Q6H PRN IVP 07/29/17 16:30 (Lovenox Inj) 40 mg Q24H SQ 07/29/17 17:00 07/29/17 18:21 (Narcan Inj) 0.4 mg UNSCH PRN IV PUSH 07/29/17 16:30 (Areli-Colace) 1 tab BID PO 07/29/17 21:00 (Milk Of Magnesia Liq) 30 ml Q12H PRN PO 07/29/17 16:30 (Senokot) 17.2 mg Q12H PRN PO 07/29/17 16:30 (Dulcolax Supp) 10 mg DAILY PRN RECTAL 07/29/17 16:30 (Lactulose Liq) 30 ml DAILY PRN PO 07/29/17 16:30 Assessment and Plan Problem List: (1) Coronary artery disease ICD Codes: I25.10 - Atherosclerotic heart disease of cachil dehe coronary artery without angina pectoris Status: Acute Assessment and Plan 07/30/17 Seen by cardiologists today, signed off case. Consult placed to Dr Ding for decreased pulses to RLE. no reported pain to RLE today, cont with Lovenox qd. VSS. Possible D/C today once seen by vascular surgeon. Khadra Hauser Jul 30, 2017 08:42
[2017-07-30] MEDS: DOCUSATE SODIUM 50 MG/SENNA 8.6 MG TAB PO SCH (08:43)
[2017-07-30] MEDS ORDERED: ASPIRIN 81 MG CHEW TAB CHEW ONE (10:00)
[2017-07-30] MEDS: SODIUM CHLORIDE 0.9% FLUSH 10 ML FLUSH IV FLUSH SCH (10:04)
[2017-07-30 11:07] VITALS: BP 130/79; PULSE 90; RESP 18; TEMP 98.1; O2SAT 97
--- NOTE | 2017-07-30 13:46 | HHI.DS ---
Discharge Summary Admission Date Jul 29, 2017 at 15:49 Discharge Date: Jul 30, 2017 Admitting Diagnosis angina ecquivalent?, ACS history, significant vessel disease CBC/BMP: 07/29/17 1230 07/30/17 0545 Significant Findings Laboratory Tests Test 07/29/17 12:30 07/29/17 17:48 07/29/17 23:45 07/30/17 05:45 Activated Partial Thromboplast Time 24.1 SEC (24.3-30.1) Random Glucose 123 MG/DL (74-106) Aspartate Amino Transf (AST/SGOT) 14 U/L (15-37) Troponin I LESS THAN 0.02 NG/ML LESS THAN 0.02 NG/ML LESS THAN 0.02 NG/ML Imaging Last 48 hours Impressions Chest X-Ray 07/29/17 1159 Signed Impressions: Service Date/Time: Saturday, July 29, 2017 12:08 - CONCLUSION: No acute disease. Patient is again noted to be status post median sternotomy. Jamaal Saha MD Aorta w/Runoff CTA 07/29/17 0000 Signed Impressions: Service Date/Time: Saturday, July 29, 2017 13:58 - CONCLUSION: 1. Normal CT angiogram and runoff. There is only minimal atherosclerotic plaquing. Mg Resendiz MD PE at Discharge GENERAL: This is a well-nourished, well-developed patient, in no apparent distress. SKIN: No rashes, ecchymoses or lesions. Cool and dry. HEAD: Atraumatic. Normocephalic. No temporal or scalp tenderness. EYES: Pupils equal round and reactive. Extraocular motions intact. No scleral icterus. No injection or drainage. ENT: Nose without bleeding, purulent drainage or septal hematoma. Throat without erythema, tonsillar hypertrophy or exudate. Uvula midline. Airway patent. NECK: Trachea midline. No JVD or lymphadenopathy. Supple, nontender, no meningeal signs. CARDIOVASCULAR: Regular rate and rhythm without murmurs, gallops, or rubs. RESPIRATORY: Clear to auscultation. Breath sounds equal bilaterally. No wheezes , rales, or rhonchi. GASTROINTESTINAL: Abdomen soft, non-tender, nondistended. No hepato-splenomegaly , or palpable masses. No guarding. MUSCULOSKELETAL: Extremities without clubbing, cyanosis, or edema. B/L le warm, pulses to RLE diminished NEUROLOGICAL: Awake and alert. Cranial nerves II through XII intact. Motor and sensory grossly within normal limits. Five out of 5 muscle strength in all muscle groups. Normal speech. Hospital Course Admitted under observation, for RLE leg pain. Patient presented with decrease pulses. Has hx of CAD with cabg. Seen by cardiology determined to be a possible vascular issue. Vascular surgeon consulted. Recommended patient follow up rheumatology, Pt Condition on Discharge: Good Discharge Disposition: Discharge Home Discharge Instructions DIET: Follow Instructions for: As Tolerated, No Restrictions, Heart Healthy Diet Activities you can perform: Regular-No Restrictions Follow up Referrals: PCP Follow-up - 1 Week @ [facility] Jul 30, 2017 13:46
--- NOTE | 2017-07-30 14:23 | MB ---
cc: JAKOB MCKEON M.D. DATE OF CONSULTATION 07/30/2017 REASON FOR CONSULTATION History of coronary artery disease, patient known to Dr. Jaime. HISTORY OF PRESENT ILLNESS The patient is a 51-year-old white male, followed in our office by Dr. Kishore Jaime, with a history of coronary artery disease, hypertension, hyperlipidemia, who presented to the hospital mainly with complaints of right foot numbness and bilateral calf discomfort. These symptoms have been intermittent for the past week or so. The symptoms in the legs have no relationship whatsoever to exertion or ambulation. He denies chest pain, shortness of breath, lightheadedness, syncope, near-syncope, palpitations, pedal edema, paroxysmal nocturnal dyspnea. PAST MEDICAL HISTORY 1. Coronary artery disease status post bypass surgery 08/18/2015 with a left internal mammary artery to the LAD, vein graft to the second diagonal, vein graft to the first obtuse marginal with sequential to the distal left circumflex. His last heart catheterization was 01/14/2017 showing normal left main, 60% lesions at the ostium of the LAD, and in the proximal and mid LAD, severe left circumflex disease, mild right coronary disease, patent bypass grafts except for the left internal mammary artery to the LAD. His ejection fraction was 60%. 2. Hypertension. 3. Hyperlipidemia. MEDICATIONS His cardiac medications at home: 1. Imdur 30 mg q. day. 2. Aspirin 81 mg q. day. 3. Atorvastatin 40 mg q.h.s. 4. Metoprolol tartrate 25 mg q. day. 5. Lisinopril 5 mg q. day. ALLERGIES No known drug allergies. FAMILY HISTORY Noncontributory to the present situation. SOCIAL HISTORY The patient quit smoking about 14 years ago. He denies alcohol abuse. REVIEW OF SYSTEMS As in the history of present illness otherwise negative or noncontributory. He also denies headache, abdominal pain, melena, dyspepsia, bright red blood per rectum, fevers. PHYSICAL EXAMINATION VITAL SIGNS: On physical examination his blood pressure is 110/65 with a pulse of 67, respirations 18. GENERAL: In general he is a well-developed, well-nourished white male no acute distress. HEENT/NECK: Jugular venous pressure is normal. Carotid pulses are 2+ bilaterally and without bruits. CHEST: Examination of the chest reveals clear lung [place]. CARDIAC: On cardiac examination he has a regular rhythm and rate without S3, S4, or murmur. ABDOMEN: On abdominal examination he has a soft, nontender abdomen. Bowel sounds are present. There is no definite hepatosplenomegaly. EXTREMITIES: Examination of extremities reveals no clubbing, cyanosis or edema. Dorsalis pedis and posterior tibial pulses are 1+ bilaterally. EKG EKG shows normal sinus rhythm, right ventricular conduction delay, nonspecific T-wave changes. LABORATORY Laboratory data includes normal CBC, normal basic metabolic profile, negative cardiac enzymes. IMPRESSION Stable cardiac status in this 51-year-old white male with a history of coronary artery disease status post bypass surgery 2016, history of hypertension and hyperlipidemia. The patient has no symptoms to suggest recent angina. Cardiac enzymes are negative for myocardial infarction. EKG shows no acute ST-segment or T-wave changes. The etiology of his lower extremity symptomatology is not entirely clear. CT angiogram with runoff yesterday apparently was negative for any high-grade disease. The patient also just had a heart catheterization about five months ago showing patent bypass grafts except for the left internal mammary artery to the LAD. From what I can gather the [place] LAD had no high-grade stenosis. RECOMMENDATIONS 1. No additional cardiac work-up at this time. 2. He is cleared for discharge from a cardiac standpoint. MD PAUL Melendrez/KRISTEN /8:01 AM /8:56 AM [place]
--- NOTE | 2017-07-30 14:39 | EKG ---
Date Performed: 07/29/2017 Time Performed: 23:39:57 PTAGE: 51 years EKG: Sinus rhythm LOW QRS VOLTAGE IN PRECORDIAL LEADS INCOMPLETE RIGHT BUNDLE BRANCH BLOCK MODERATE T-WAVE ABNORMALITY , CONSIDER ANTERIOR ISCHEMIA ABNORMAL ECG Since PREVIOUS TRACING , no significant change noted PREVIOUS TRACIN07/29/2017 18.17 DOCTOR: Yasmin Huffman Interpretating Date/Time 07/30/2017 14:39:13
--- NOTE | 2017-07-30 14:40 | EKG ---
Date Performed: 07/29/2017 Time Performed: 18:17:54 PTAGE: 51 years EKG: Sinus rhythm POSSIBLE LEFT ATRIAL ENLARGEMENT LOW QRS VOLTAGE IN PRECORDIAL LEADS POSSIBLE RIGHT VENTRICULAR COND UCTION DELAY NONSPECIFIC T-WAVE ABNORMALITY BORDERLINE ECG Since PREVIOUS TRACING , no significant change noted PREVIOUS TRACIN07/29/2017 12.24 DOCTOR: Yasmin Huffman Interpretating Date/Time 07/30/2017 14:39:40
--- NOTE | 2017-07-30 14:42 | EKG ---
Date Performed: 07/29/2017 Time Performed: 12:24:12 PTAGE: 51 years EKG: Sinus rhythm LOW QRS VOLTAGE IN PRECORDIAL LEADS POSSIBLE RIGHT VENTRICULAR CONDUCTION DELAY BORDERLINE ECG Since PREVIOUS TRACING , no significant change noted PREVIOUS TRACIN01/12/2017 00.22 DOCTOR: Yasmin Huffman Interpretating Date/Time 07/30/2017 14:40:14
--- NOTE | 2017-07-30 14:44 | MB ---
cc: IHSAN WOMACK D.O., JAMES DATE OF CONSULTATION 07/30/2017 REASON FOR CONSULTATION Right leg pain. HISTORY OF PRESENT ILLNESS This 51-year-old gentleman presented to the emergency room yesterday complaining of a several day history of discomfort and coolness within the right foot. A couple of years ago, he presented to the emergency room with what he describes as identical symptoms in his right leg. Further evaluation revealed of advanced coronary artery disease and he underwent uncomplicated coronary artery bypass. He claims that following his coronary bypass his right leg symptoms completely resolved. Over the holidays he was standing and walking quite a bit at work and began noticing discomfort in the right calf and coolness in the right foot. His symptoms seemed to actually improve with ambulation. He has no prior history of chronic back pain, neuropathy, deep vein thrombosis or rheumatological disorders. PHYSICAL EXAMINATION GENERAL: A well-developed, well-nourished and physically fit appearing 51-year-old male with pleasant affect. LUNGS: Symmetrically expanded and clear. CARDIAC: Rhythm is sinus. No rubs or gallops. No carotid bruits. No neck vein distention or HJR. Well-healed sternotomy noted. ABDOMEN: Soft. No palpable masses or aneurysms. EXTREMITIES: Femoral, popliteal and posterior tibial pulses are 2+ and symmetrical bilaterally. Doppler flow is triphasic within the posterior tibial arteries bilaterally. No edema. Good joint range of motion. Negative Homans sign. NEUROLOGIC: No focal deficits. IMAGING I have reviewed yesterday's aortofemoral CT angiogram. IMPRESSION Right calf discomfort "coolness" right foot of uncertain etiology - presumably musculoskeletal in origin. PLAN This gentleman's bilateral lower extremity perfusion is completely normal. He has no evidence of significant arterial or venous occlusive disease. I reassured him regarding the lack of any limb-threatening issues. We discussed some symptomatic measures that may be of benefit and I suggested that should his symptoms persist and/or worsen that he might seek further evaluation by a wooden shade hardware installer - Dr. Han. Thank you for allowing me to participate in this gentleman's care. MD ABDULKADIR Chisholm/KRISTEN /1:13 PM /1:26 PM
[2017-07-30] MEDS ORDERED: ATORVASTATIN 40 MG TAB PO SCH (21:00)
[2017-07-31] MEDS ORDERED: LISINOPRIL 5 MG TAB PO SCH (09:00)
[2017-07-31] MEDS ORDERED: ISOSORBIDE MONONITRATE 30 MG TAB PO SCH (09:00)
[2017-07-31] MEDS ORDERED: PARoxetine HCL 20 MG TAB PO SCH (09:00)
[2017-07-31] MEDS ORDERED: METOPROLOL TARTRATE 25 MG TAB PO SCH (09:00)
== END 2017-07-30 15:14 | disposition home or self-care (01) ==
LOC: NEPE 11:17 → NEDA 15:49 → NEDH 19:36 → NEPHCDU 21:35
PROVIDERS: ADMIT Family Medicine; ATTEND Family Medicine
DX: R07.9 Chest pain, unspecified (principal); M79.604 Pain in right leg; R06.02 Shortness of breath; I25.10 Atherosclerotic heart disease of native coronary artery without angina pectoris; I10 Essential (primary) hypertension; E78.00 Pure hypercholesterolemia, unspecified; I45.10 Unspecified right bundle-branch block; R20.0 Anesthesia of skin; R94.31 Abnormal electrocardiogram [ECG] [EKG]; F17.200 Nicotine dependence, unspecified, uncomplicated; Z95.1 Presence of aortocoronary bypass graft; Z95.5 Presence of coronary angioplasty implant and graft; Z79.899 Other long term (current) drug therapy; Z79.82 Long term (current) use of aspirin
CPT/HCPCS: 71045; 75635; 80053; 82550; 82948; 83735; 84484; 85025; 85610; 85730; 93005; 99285; G0378; J1650; Q9967

== ENCOUNTER 2018-04-30 19:57 | Observation (INO) ==
[2018-04-30] MEDS ORDERED: Aspirin 325 MG Tablet PO ONE (21:19)
[2018-04-30 21:29] LABS: Baso # (Auto) 0.1 th/mm3 (0.0-0.2); Baso % (Auto) 0.8 % (0.0-2.0); Eos # (Auto) 0.2 th/mm3 (0.0-0.4); Eos % (Auto) 3.3 % (0.0-4.0); Hematocrit 44.3 % (39.0-51.0); Hemoglobin 15.1 gm/dL (13.0-17.0); Lymph # (Auto) 1.8 th/mm3 (1.0-4.8); Lymph % (Auto) 27.1 % (9.0-44.0); Mean Corpuscular HGB Conc 34.2 % (32.0-36.0); Mean Corpuscular Hemoglobin 30.9 pg (27.0-34.0); Mean Corpuscular Volume 90.3 fL (80.0-100.0); Mean Platelet Volume 7.7 fL (7.0-11.0); Mono # (Auto) 0.4 th/mm3 (0.0-0.9); Mono % (Auto) 6.8 % (0.0-8.0); Neut # (Auto) 4.1 th/mm3 (1.8-7.7); Platelet Count 275 th/mm3 (150-450); Red Cell Distribution Width 13.1 % (11.6-17.2); White Blood Count 6.6 th/mm3 (4.0-11.0)
[2018-04-30 21:55] LABS: Alanine Aminotransferase 15 U/L (12-78)
[2018-04-30 21:57] LABS: Albumin 4.1 g/dL (3.4-5.0); Anion Gap 6 meq/L (5-15); Aspartate Aminotransferase 20 U/L (15-37); Blood Urea Nitrogen 11 mg/dL (7-18); Calcium 9.2 mg/dL (8.5-10.1); Carbon Dioxide 28.7 meq/L (21.0-32.0); Chloride 104 meq/L (98-107); Glomerular Filtration Rate Greater Than 89 mL/min (>89); Glucose,Random 98 mg/dL (74-106); Potassium 3.7 meq/L (3.5-5.1); Sodium 139 meq/L (136-145)
[2018-04-30 21:59] LABS: Alkaline Phosphatase 69 U/L (45-117); Total Protein 7.7 g/dL (6.4-8.2)
--- NOTE | 2018-04-30 22:21 | ED ---
HPI General Chief Complaint: Chest Pain Stated Complaint: Tightness in chest numbnes/3yrs in fe quad bipass Time Seen by Provider: 04/30/18 20:42 Source: patient Mode of arrival: ambulatory Limitations: no limitations History of Present Illness HPI narrative: 52-year-old male with PMH of HTN, CAD status post CABG, anxiety, GERD presents the ED for evaluation of "a few weeks" history of intermittent left-sided chest pain. Described as a tightness and as burning. Maximally 01/21 , 4 on arrival, resolved by the end of history gathering. He states that pain is worsened by certain motions. No alleviating factors reported. Patient endorses occasional accompanying palpitations, diaphoresis and shortness of breath. He acknowledges that some of the symptoms may be caused by his anxiety. He states that he is just been "not feeling very well" for the last week or so. He denies fever, chills,, nausea, vomiting, cough, abdominal pain, changes in bowel habits, dysuria. He recently saw his cardiac surgeon who has agreed to remove his sternal wires secondary to pain at the sternotomy site. He states that his surgeon told him to see his certified medication technician for medical clearance prior to this procedure. He is a former smoker. He endorses compliance with his daily medications. He does not take blood thinners. He states that he takes his daily medications at night. MD complaint: Reports chest pain STEMI Alert: No Related Data Home Medications Medication Instructions Recorded Confirmed alprazolam 0.5 mg PO DAILY 04/30/18 04/30/18 aspirin [Aspir-81] 81 mg PO DAILY 04/30/18 04/30/18 isosorbide mononitrate 15 mg PO DAILY 04/30/18 04/30/18 lisinopril 5 mg PO DAILY 04/30/18 04/30/18 metoprolol tartrate 12.5 mg PO BID 04/30/18 04/30/18 pantoprazole 40 mg PO DAILY 04/30/18 04/30/18 Allergies Allergy/AdvReac Type Severity Reaction Status Date / Time No Known Allergies Allergy Verified 04/30/18 20:33 Review of Systems ROS: all other systems reviewed are negative [facility] Medical History Medical History Anxiety (Acute) GERD (gastroesophageal reflux disease) (Acute) HTN (hypertension) (Acute) Surgical History Surgical History Hx of CABG (Acute) Social History Social History Substance History: No History of Abuse Smoking Status: Former smoker How Often Do You Have a Drink Containing Alcohol: Never Recent Travel [facility] within the Last 8 Weeks: No Recent Out of Country Travel within the Last 8 Weeks: No Immunization History Tetanus Immunization: >5 Years Exam Narrative Exam Narrative: GENERAL: Well-nourished well-developed white male no acute distress. SKIN: Focused skin assessment warm/dry. Sternotomy scar in the midline with areas of erythema and tenderness. No fluctuance. No warmth. HEAD: Atraumatic. Normocephalic. EYES: Pupils equal and round. No scleral icterus. No injection or drainage. ENT: No nasal bleeding or discharge. Mucous membranes pink and moist. NECK: Trachea midline. No JVD. CARDIOVASCULAR: Regular rate and rhythm. No murmur appreciated. CHEST: Tender to palpation of the left anterior chest. No deformity or crepitus. No retractions. RESPIRATORY: No accessory muscle use. Clear to auscultation. Breath sounds equal bilaterally. GASTROINTESTINAL: Abdomen soft, non-tender, nondistended. Hepatic and splenic margins not palpable. MUSCULOSKELETAL: No obvious deformities. No clubbing. No cyanosis. No edema. NEUROLOGICAL: Awake and alert. No obvious cranial nerve deficits. Motor grossly within normal limits. Normal speech. PSYCHIATRIC: Anxious. Course Initial Documented Vital Signs Temperature 98.2 F 04/30/18 20:28 Pulse Rate 77 04/30/18 20:28 Respiratory Rate 16 04/30/18 20:28 Blood Pressure 129/93 H 04/30/18 20:28 Pulse Oximetry 98 04/30/18 20:28 Last Documented Vital Signs Temperature 98.2 F 04/30/18 20:28 Pulse Rate 65 04/30/18 23:00 Respiratory Rate 16 04/30/18 23:00 Blood Pressure 129/87 04/30/18 23:00 Pulse Oximetry 100 04/30/18 20:48 Clinical Decision Support HEART Score Questions History: Slightly suspicious EKG: Non-specific repolarization disturbance Age: < 45 years Risk Factors: 3 or more Risk Factors or Hx of Atherosclerotic Disease Initial Troponin: Normal Limit Heart Score HEART Score: 3 Medical Decision Making MDM Narrative Medical decision making narrative: 52-year-old male with PMH of CAD status post CABG presents the ED for evaluation of central and left-sided chest pain, described as a tightness and burning. Worsened by certain motions. Sometimes associated with shortness of breath, palpitations, diaphoresis. He acknowledges that some of this may be anxiety. States that he had some trouble with his sternotomy and plans to have some wires removed. He is followed by Dr. Jaime. Vitals reviewed. Physical exams reassuring. Patient's not experiencing any chest pain by the end of the history gathering. He was administered an aspirin. Troponin negative x1. D-dimer negative. EKG as below , similar to previous EKGs. Given his heart score of 3 will admit to the chest pain center for further evaluation. Patient's agreeable to the plan. Please see chest pain center notes for disposition. Medical Screen Exam Complete: Yes Emergency Medical Condition: Yes Differential Diagnosis Differential Diagnosis: Chest pain versus ACS versus anxiety versus muscular skeletal pain versus PE versus other Lab Data Result diagrams: 04/30/18 21:20 04/30/18 21:20 Lab Results 04/30/18 04/30/18 04/30/18 Range/Units 21:20 21:20 22:38 WBC 6.6 (4.0-11.0) th/mm3 RBC 4.90 (4.50-5.90) mil/mm3 Hgb 15.1 (13.0-17.0) gm/dL Hct 44.3 (39.0-51.0) % MCV 90.3 (80.0-100.0) fL MCH 30.9 (27.0-34.0) pg MCHC 34.2 (32.0-36.0) % RDW 13.1 (11.6-17.2) % Plt Count 275 (150-450) th/mm3 MPV 7.7 (7.0-11.0) fL Neut % (Auto) 62.0 (16.0-70.0) % Lymph % (Auto) 27.1 (9.0-44.0) % [place] % (Auto) 6.8 (0.0-8.0) % Eos % (Auto) 3.3 (0.0-4.0) % Baso % (Auto) 0.8 (0.0-2.0) % Neut # (Auto) 4.1 (1.8-7.7) th/mm3 Lymph # (Auto) 1.8 (1.0-4.8) th/mm3 [place] # (Auto) 0.4 (0.0-0.9) th/mm3 Eos # (Auto) 0.2 (0.0-0.4) th/mm3 Baso # (Auto) 0.1 (0.0-0.2) th/mm3 WBC Differential . Differential Comment Auto diff final D-Dimer Quant (PE/DVT) 0.33 (0.00-0.50) mg/L FEU Sodium 139 (136-145) meq/L Potassium 3.7 (3.5-5.1) meq/L Chloride 104 (98-107) meq/L Carbon Dioxide 28.7 (21.0-32.0) meq/L Anion Gap 6 (5-15) meq/L BUN 11 (7-18) mg/dL Creatinine 0.84 (0.60-1.30) mg/dL Estimated GFR Greater than 89 (>89) mL/min Random Glucose 98 (74-106) mg/dL Calcium 9.2 (8.5-10.1) mg/dL Total Bilirubin 0.4 (0.2-1.0) mg/dL AST 20 (15-37) U/L ALT 15 (12-78) U/L Alkaline Phosphatase 69 (45-117) U/L Troponin I Less than 0.02 L (0.02-0.05) ng/mL Total Protein 7.7 (6.4-8.2) g/dL Albumin 4.1 (3.4-5.0) g/dL Imaging Data Radiologist's impression: Chest X-Ray 04/30/18 21:19 CONCLUSION: Previous sternotomy. No acute findings. ECG Data Attestation: I personally reviewed and interpreted this ECG as follows: Interpretation: EKG rate 72, sinus rhythm. DC interval 152, QRS 104, QTc [address] abnormalities in V3 and V4, similar to previous EKGs. Discharge Plan Discharge Disposition Patient Disposition: 30 Still Patient Physicians Team ED Provider: Terrie Grier ED Midlevel Provider: Riana Domingo Primary Care Provider: Humble Sparrow Attending Provider: Mahesh Hawkins Discharge Interventions Interventions: Vital Signs Last Done: 04/30/18 20:48 Status ED Status: Admitted Observation Patient
--- NOTE | 2018-04-30 22:21 | XR ---
EXAM DATE: 04/30/2018 9:19 PM EDT AGE/SEX: 52 years / Male INDICATIONS: Left sided chest pain. CLINICAL DATA: This is the patient's initial encounter. Patient reports that signs and symptoms have been present for 3 days and indicates a pain score of 7/10. MEDICAL/SURGICAL HISTORY: None. CABG. COMPARISON: [facility] [place], CHEST SINGLE AP, 07/29/2017. . FINDINGS: A single AP view of the chest demonstrates the lungs to be symmetrically aerated without evidence of mass, infiltrate or effusion. The cardiomediastinal contours are unremarkable. Osseous structures a re intact. CONCLUSION: Previous sternotomy. No acute findings. Electronically signed by: Ryan Car MD 04/30/2018 10:19 PM EDT
[2018-04-30] MEDS ORDERED: Lisinopril 5 MG Tablet PO ONE (23:07)
[2018-04-30] MEDS ORDERED: Metoprolol Tartrate 25 MG Tablet PO ONE (23:07)
[2018-04-30] MEDS ORDERED: Isosorbide Mononitrate 30 MG ER 24HR Tablet (Imdur) PO ONE (23:07)
[2018-05-01 02:45] LABS: Creatine Kinase 103 U/L (39-308)
[2018-05-01 05:42] LABS: Creatine Kinase 100 U/L (39-308)
[2018-05-01] MEDS ORDERED: Acetaminophen 500 MG Tablet PO PRN (07:34)
[2018-05-01 07:49] VITALS: RESP 16
--- NOTE | 2018-05-01 08:53 | P.HPCA ---
History of Present Illness Primary Care Physician: Humble Sparrow DO Chief Complaint: Chest tightness History of Present Illness: 52-year-old male with history of CABG, hypertension, GERD, and anxiety presents emergency room for further evaluation chest tightness. Onset Saturday. Location left anterior chest. No radiation. No associated symptoms of nausea, vomiting , dyspnea, or diaphoresis. Duration constant. Mild to moderate severity. No precipitating or relieving factors. Endorses chronic numbness of left anterior chest since CABG in 2015. Saturday numbness worsened with accompanying chest tightness. Relates numbness to sternal wires. Appointment with Dr. Rogers, cardiothoracic surgeon Saturday to discuss possible removal of sternal wires. Dr. Rogers requests him to speak with Dr. Jaime for cardiac clearance. Appointment with Dr. Jaime scheduled today at 2:30pm, however yesterday chest tightness persisted and somewhat more intense therefore came to ER for further evaluation. Denies past cardiac discomfort prior to his coronary artery disease. No recent fever, illness, or injury. Reports "feeling under the weather " with fatigue x1 month. Past cardiac testing 01/14/2017 Cardiac catheterization (Dr. Jaime) Conclusions: 1. Normal hemodynamics. 2. Preserved left ventricular function with diaphragmatic hypokinesis. 3. Severe two-vessel coronary artery disease. 4. 3 out of 4 patent bypass grafts. PLAN: Medical management. I am going to add Imdur 60 mg daily. He can continue his beta-peter and stop his lisinopril. 01/12/2017 Lexiscan-focal area of reversibility in the inferior lateral wall of left ventricle. 08/23/2015 CABGx4-TANNER to LAD, reverse saphenous graft to second diagonal, reverse saphenous graft to OM1 with sequential to distal left circumflex 08/16/2015 Cardiac catheterization (Dr. Jaime) Conclusions: Proximal LAD 80%, Diagonal 75%, Circumflex 90% before the OM, OM 70%. Persevered LVF. 08/15/2015 Lexiscan-suspected areas of mild ischemia involving portions of the anterior septal and inferior wall. Follows with Dr. Jaime. Social history Known coronary artery disease, hypertension, and hyperlipidemia. No known diabetes. Unfortunately he is statin intolerant. Former smoker quit 13 years ago. Rare alcohol use, no drug use. 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 Does not routinely exercise due to worry of cardiac history. Family history Father age 41 from myocardial infarction. Brother first cardiac stent placed age 50. Mother is alive and well with history of liver transplant approx. 5 years ago. - Diagnosis (1) Atypical chest pain (2) History of four vessel coronary artery bypass graft (3) Hypertension (4) History of gastroesophageal reflux (GERD) Review of Systems All other systems reviewed negative except as stated in HPI PMFSH - History History Provided By: Patient - Medical History Medical History: Medical History (Last Updated 05/01/18 @ 10:52 by LAVERNE Garcias) Anxiety CAD (coronary artery disease) GERD (gastroesophageal reflux disease) HTN (hypertension) Hyperlipidemia - Surgical History Surgical History: Surgical History (Last Updated 05/01/18 @ 10:52 by LAVERNE Garcias) Hx of CABG - Family History Family History: Family History (Last Updated 05/01/18 @ 10:53 by LAVERNE Garcias) Brother H/O heart artery stent Mother Liver transplant recipient Father Myocardial infarct - Social History I have reviewed the patient's Social History: Yes - Tobacco History Second Hand Smoke Exposure: No Tobacco Use In Past 30 Days: No Smoking Status: Former smoker (quit 13 year ago, history of 1pack/weekly) Tobacco Type: Cigarettes - Alcohol History How Often Do You Have a Drink Containing Alcohol: 2 to 4 times a month - Substance Use History Substance History: No History of Abuse - Travel History History of Recent Travel: No Recent Travel in the [place] Within the Last 8 Weeks: Yes Recent Travel Out of the Country Within the Last 8 Weeks: No - Immunization History Tetanus Immunization: >5 Years Medications and Allergies Active Medications: Active Medications Acetaminophen (Tylenol) 500 mg PO Q4H PRN PRN Reason: HEADACHE Nitroglycerin (Nitrostat Sl) 0.4 mg SL Q5M PRN PRN Reason: CHEST PAIN Ondansetron HCl (Zofran Inj) 4 mg IV.PUSH Q6H PRN PRN Reason: NAUSEA Sodium Chloride (Ns Flush) 2 ml IV.FLUSH UNSCH PRN PRN Reason: FLUSH AFTER USING IV ACCESS Sodium Chloride (Ns Flush) 2 ml IV.FLUSH BID JEAN Sodium Chloride (Ns Flush) 2 ml IV.FLUSH PRN PRN PRN Reason: FLUSH AFTER USING IV ACCESS Allergies Allergy/AdvReac Type Severity Reaction Status Date / Time No Known Allergies Allergy Verified 04/30/18 20:33 Home Medications Medication Instructions Recorded Confirmed Type alprazolam 0.5 mg PO DAILY 04/30/18 04/30/18 History aspirin [Aspir-81] 81 mg PO DAILY 04/30/18 04/30/18 History isosorbide mononitrate 15 mg PO DAILY 04/30/18 04/30/18 History lisinopril 5 mg PO DAILY 04/30/18 04/30/18 History metoprolol tartrate 12.5 mg PO BID 04/30/18 04/30/18 History pantoprazole 40 mg PO DAILY 04/30/18 04/30/18 History Exam Vital signs: Vital Signs 04/30/18 20:28 04/30/18 20:48 04/30/18 22:00 Temperature 98.2 F Pulse Rate 77 76 68 Respiratory Rate 16 17 16 Blood Pressure 129/93 H 145/82 H 138/60 Pulse Oximetry 98 100 97 04/30/18 23:00 05/01/18 00:15 05/01/18 01:21 Temperature Pulse Rate 65 64 63 Respiratory Rate 16 16 16 Blood Pressure 129/87 126/83 121/77 Pulse Oximetry 96 05/01/18 03:19 05/01/18 07:47 Temperature 97.6 F 97.6 F Pulse Rate 50 L 47 L Respiratory Rate 19 16 Blood Pressure 100/61 99/67 L Pulse Oximetry 96 97 Intake & Output 04/30/18 05/01/18 05/01/18 18:59 06:59 18:59 Weight 73.482 kg Other: # Voids 1 Narrative: GENERAL: Alert WN, WD, NAD, very pleasant, male HEAD: NC, AT EYES: Sclera clear, conjunctiva without injection, pupils equal and round ENT: Mucous membranes pink and moist CV: RRR, without murmur, rub, gallop, no JVD, S1-S2 no S3-S4. No carotid or femoral bruits. Point tenderness to left anterior chest. RESP: Clear lungs throughout bilateral, no crackles, wheeze, rhonchi, symmetrical chest rise, nonlabored, able to speak in full sentences ABD: Soft, NT, ND, no masses, positive bowel tones EXT: Pulses +2x4, trace bilateral lower extremity edema, mild varicosities bilateral ankles MS: Normal tone x4 extremities, nontender, no obvious deformities, full range of motion NEURO: CN II through CN XII grossly intact, motor strength 5/5 PSYCH: A+O x3, pleasant affect, appropriate speech, mood, insight and judgment SKIN: Normal turgor, normal texture, no lesions, no rashes, brisk cap refill, even hair distribution, multiple tattoos Results 04/30/18 21:20 04/30/18 21:20 Cardiac Enzymes 04/30/18 05/01/18 05/01/18 Range/Units 21:20 02:07 05:00 AST 20 (15-37) U/L Troponin I Less than 0.02 L Less than 0.02 L Less than 0.02 L (0.02-0.05) ng/mL CBC 04/30/18 Range/Units 21:20 WBC 6.6 (4.0-11.0) th/mm3 RBC 4.90 (4.50-5.90) mil/mm3 Hgb 15.1 (13.0-17.0) gm/dL Hct 44.3 (39.0-51.0) % Plt Count 275 (150-450) th/mm3 Neut # (Auto) 4.1 (1.8-7.7) th/mm3 Lymph # (Auto) 1.8 (1.0-4.8) th/mm3 Mccreary # (Auto) 0.4 (0.0-0.9) th/mm3 Eos # (Auto) 0.2 (0.0-0.4) th/mm3 Baso # (Auto) 0.1 (0.0-0.2) th/mm3 Comprehensive Metabolic Panel 04/30/18 Range/Units 21:20 Sodium 139 (136-145) meq/L Potassium 3.7 (3.5-5.1) meq/L Chloride 104 (98-107) meq/L Carbon Dioxide 28.7 (21.0-32.0) meq/L BUN 11 (7-18) mg/dL Creatinine 0.84 (0.60-1.30) mg/dL Calcium 9.2 (8.5-10.1) mg/dL AST 20 (15-37) U/L ALT 15 (12-78) U/L Alkaline Phosphatase 69 (45-117) U/L Total Protein 7.7 (6.4-8.2) g/dL Albumin 4.1 (3.4-5.0) g/dL Intake and Output 04/30/18 05/01/18 05/01/18 22:59 06:59 14:59 Other: # Voids 1 Weight 73.482 kg - Imaging and Cardiology Imaging: Impressions Chest X-Ray 04/30/18 21:19 CONCLUSION: Previous sternotomy. No acute findings. EKG interpretations - EKG EKG results cardiology: sinus rhythm (NSR, RBBB) Caprini VTE Risk Assessment Caprini VTE Risk Assessment: No/Low Risk (score <= 1) Caprini Risk Assessment Model: Point Value = 1 Point Value = 2 Point Value = 3 Point Value = 5 Age 41-60 Minor surgery BMI > 25 kg/m2 Swollen legs Varicose veins or History of unexplained or recurrent spontaneous Oral contraceptives or hormone replacement Sepsis (< 1 month) Serious lung disease, including pneumonia (< 1 month) Abnormal pulmonary function Acute myocardial infarction Congestive heart failure (< 1 month) History of inflammatory bowel disease Medical patient at bed rest Age 61-74 Arthroscopic surgery Major open surgery (> 45 min) Laparoscopic surgery (> 45 min) Malignancy Confined to bed (> 72 hours) Immobilizing plaster cast Central venous access Age >= 75 History of VTE Family history of VTE Factor V Leiden Prothrombin [id number] Lupus anticoagulant Anticardiolipin antibodies Elevated serum homocysteine Heparin-induced thrombocytopenia Other congenital or acquired thrombophilia Stroke (< 1 month) Elective arthroplasty Hip, pelvis, or leg fracture Acute spinal cord injury (< 1 month) Prophylaxis Regimen: Total Risk Factor Score Risk Level Prophylaxis Regimen 0-1 Low Early ambulation 2 Moderate Order ONE of the following: *Sequential Compression Device (SCD) *Heparin 5000 units SQ BID 3-4 Higher Order ONE of the following medications: *Heparin 5000 units SQ TID *Enoxaparin/Lovenox 40 mg SQ daily (WT < 150 kg, CrCl > 30 mL/min) *Enoxaparin/Lovenox 30 mg SQ daily (WT < 150 kg, CrCl > 10-29 mL/min) *Enoxaparin/Lovenox 30 mg SQ BID (WT < 150 kg, CrCl > 30 mL/min) AND/OR *Sequential Compression Device (SCD) 5 or more Highest Order ONE of the following medications: *Heparin 5000 units SQ TID (Preferred with Epidurals) *Enoxaparin/Lovenox 40 mg SQ daily (WT < 150 kg, CrCl > 30 mL/min) *Enoxaparin/Lovenox 30 mg SQ daily (WT < 150 kg, CrCl > 10-29 mL/min) *Enoxaparin/Lovenox 30 mg SQ BID (WT < 150 kg, CrCl > 30 mL/min) AND *Sequential Compression Device (SCD) Assessment and Plan - Assessment (1) Atypical chest pain Code(s): R07.89 - Other chest pain Status: Acute Plan: Admitted to chest pain center. ACS ruled out with 3 sets of EKGs and cardiac enzymes. Monitored on telemetry overnight, telemetry reviewed. Will be seen and evaluated by Dr. Bird Spain this a.m. Will contact patient's keycase assembler to discuss plan of care. 09 return call received from Dr. Jaime. Patient well known to Dr. Jaime who recommends Lexiscan. (2) History of four vessel coronary artery bypass graft Code(s): Z95.1 - Presence of aortocoronary bypass graft Status: Chronic Plan: Continue Imdur, metoprolol, and aspirin. Encouraged upon discharge discussing with his PCP and/or Dr. Jaime to determine if a candidate for Rapatha and possible cardiac rehab to decrease anxiety around cardiac exercise. (3) Hypertension Code(s): I10 - Essential (primary) hypertension Status: Chronic Plan: Continue lisinopril. Encouraged continuing low sodium diet. (4) History of gastroesophageal reflux (GERD) Code(s): Z87.19 - Personal history of other diseases of the digestive system Status: Chronic Plan: Continue protonic. H&P: Quality - VTE Deep Vein Thrombosis/Pulmonary Embolism Present on Admission: No (3) Hypertension Qualifiers: Hypertension type: unspecified Qualified Code(s): I10 - Essential (primary) hypertension
[2018-05-01] MEDS ORDERED: Lisinopril 5 MG Tablet PO SCH (09:00)
[2018-05-01] MEDS ORDERED: Metoprolol Tartrate 25 MG Tablet PO SCH (09:00)
--- NOTE | 2018-05-01 15:41 | NM ---
EXAM DATE: 05/01/2018 12:25 PM EDT AGE/SEX: 52 years / Male INDICATIONS: Angina. . Left chest pain. CLINICAL DATA: This is the patient's initial encounter. Patient reports that signs and symptoms have been present for 1 day and indicates a pain score of 3/10. MEDICAL/SURGICAL HISTORY: Hypertension. Gastroesophageal reflux disease. CABG. COMPARISON: [facility], MYOCARDIAL PERF TREADMILL SPECT, 01/12/2017. . DOSE: 8.6 mCi Tc 99m Myoview at rest 27.2 mCi [id number] at stress REST HEART RATE: 84 BPM TARGET HEART RATE: 145 BPM MAX HEART RATE: 151 BPM REST BLOOD PRESSURE: 138/78 mmHg MAX BLOOD PRESSURE: 150/80 mmHg EJECTION FRACTION: 70 % TECHNIQUE: The patient underwent upright treadmill exercise in the chest pain center. Continuous EC G tracing was monitored during stress. Gated SPECT imaging was performed after stress, and conventio nal SPECT imaging was performed at rest. The examination was performed on a SPECT/CT scanner, both a ttenuation-corrected and non-corrected datasets were reviewed. FINDINGS: Distribution: The maximum perfused segment at stress is in the anterior wall. Perfusion: Moderate sized moderate severity perfusion abnormality in the posterolateral wall with m ild redistribution. No significant change from prior. Gated Study: There are intact wall motion and wall thickening without hypokinetic or dyskinetic segme nts. The ejection fraction is calculated at 70%. RISK CATEGORY: High (>3% Annual Morality Rate) CONCLUSION: Moderate sized moderate severity reversible posterior lateral perfusion defect is similar to prior ap pearance. Electronically signed by: Harry Rice MD 05/01/2018 3:39 PM EDT
[2018-05-01 16:02] VITALS: BP 123/77; PULSE 83; TEMP 98; O2SAT 96
--- NOTE | 2018-05-01 16:55 | TR ---
Date Performed: 05/01/2018 Time Performed: 14:06:28 DOCTOR: Bird Spain DRUG LIST: CLINICAL HISTORY: REASON FOR TEST: REASON FOR ENDING: OBSERVATION: CONCLUSION: Jackson protocol completed. Stopped sec to exceeding target heart rate. Maximum CK=738 % Target HR Achieved=89 % Maximum PZ=245/80 Total Exercise Time=9:00. No reprod chest pain. No ectop y. Good exercise tolerance. Normal bp response. Baseline nonspecific st changes. Recovery quick and unremarkable. Nuclear images pending. COMMENTS: Conclusion: Normal treadmill exercise. No evidence of ischemia. Radionuclide was inje cted one minute prior to ending test. Nuclear imaging and interpretation are pending.
--- NOTE | 2018-05-01 18:05 | ECG ---
Date Performed: 05/01/2018 Time Performed: 04:52:20 PTAGE: 52 years EKG: SINUS BRADYCARDIA INCOMPLETE RIGHT BUNDLE BRANCH BLOCK POSSIBLE INFERIOR MYOCARDIAL INFARCT ION BORDERLINE ECG PREVIOUS TRACING : 05/01/2018 03.13 Since the previous tracing, no significant change noted DOCTOR: Wyatt Feldman Interpretating Date/Time 05/01/2018 18:04:45
--- NOTE | 2018-05-01 18:08 | ECG ---
Date Performed: 05/01/2018 Time Performed: 03:13:22 PTAGE: 52 years EKG: SINUS BRADYCARDIA INCOMPLETE RIGHT BUNDLE BRANCH BLOCK NONSPECIFIC T-WAVE ABNORMALITY BORREECE RLINE ECG PREVIOUS TRACING : 04/30/2018 20.45 Since the previous tracing, sinus bradycardia has replaced normal Sinus rhythm DOCTOR: Wyatt Feldman Interpretating Date/Time 05/01/2018 18:06:30
--- NOTE | 2018-05-01 18:09 | ECG ---
Date Performed: 04/30/2018 Time Performed: 20:45:48 PTAGE: 52 years EKG: Sinus rhythm INCOMPLETE RIGHT BUNDLE BRANCH BLOCK ST DEVIATION AND MODERATE T-WAVE ABNORMALITY, CONSIDER ANTERIOR ISCHEMIA ABNORMAL ECG PREVIOUS TRACING : 07/29/2017 23.39 Since the previous tracing, no significant change noted DOCTOR: Wyatt Feldman Interpretating Date/Time 05/01/2018 18:08:23
--- NOTE | 2018-05-01 21:04 | MB ---
cc: [facility] DATE: 05/01/2018 REASON FOR CONSULTATION: Evaluation of chest pain. HISTORY OF PRESENT ILLNESS: Kris Posada is a 52-year-old male well known to me. He has premature coronary artery disease and has had previous bypass surgery. He had called the office complaining of chest pain and was advised to come to the ER. At the time of seeing him now, he has now had a fairly complete cardiac workup. The patient describes several different types of discomfort. He has had some pain in the right biceps area that came and went. He has a constant numbness feeling in the left chest that we think is due to the left internal mammary harvest for his bypass. After doing some painting of his ceiling, he had some spot localized discomfort in the left upper chest that was tender when he would touch it. He describes it somewhat as a tightness, but he could affect it by rubbing on that area. From talking to him in detail, I really cannot elicit any symptoms that sound typical of angina. I recommended he have a nuclear stress test. This was done with a treadmill. He did the treadmill well and did not have any chest pain on the treadmill. On the nuclear pictures, his nuclear pictures showed a focal area of reversibility in the inferolateral wall of the left ventricle; however, this finding is identical when it was compared to the nuclear stress test he had prior to his last catheterization. His last catheterization was 16 months ago. It showed 3-vessel disease. He had one graft closed which was to the distal LAD, but the distal LAD is getting flow from a diagonal. I did not find anything in the circumflex territory to really adequately explain his symptoms. The posterolateral branch, which has a graft to it does have a stenosis distal to the graft, but it is a very, very small branch that does not seem sufficient to explain the findings of the stress test. I have been managing him medically. After the stress test, I was contacted to see about possible catheterization and that is why I came to do his consult. MEDICATIONS: The patient's medication include: 1. Metoprolol 12.5 b.i.d. 2. Imdur 15 mg daily. 3. Aspirin 81 mg daily. 4. Alprazolam p.r.n. for anxiety. 5. Pantoprazole 40 mg daily. ALLERGIES: NONE KNOWN. PAST MEDICAL HISTORY: Dyslipidemia, with history of statin intolerance. PAST SURGICAL HISTORY: Includes the previous bypass. FAMILY HISTORY: Positive for coronary disease in his father who at age 40. Brother has had 2 stents. SOCIAL HISTORY: He smoked from age [age]. He quit back in 2006. REVIEW OF SYSTEMS: Noncontributory. PHYSICAL EXAMINATION: GENERAL: Well-developed, well-nourished white male, in no acute distress. VITAL SIGNS: Charted. HEENT: Unremarkable. NECK: Shows no JVD. Carotid upstrokes are normal with no bruits. CHEST: Clear to auscultation. Chest exam shows tenderness over the midsternal area. CARDIAC: Shows normal first and second heart sounds, regular rate and rhythm. No murmurs or gallops. ABDOMEN: Soft, nontender. No masses or organomegaly. EXTREMITIES: No clubbing, cyanosis or edema. Peripheral pulses are intact. Serial EKG showed no changes. Troponin levels x3 do not show ischemia. IMPRESSION: His chest pain symptoms are significantly atypical, and they sound more musculoskeletal in etiology. His nuclear stress test is abnormal, but it looks identical to the nuclear stress test that preceded his last catheterization. The last catheterization did not show any need for further revascularization. He also did not have symptoms on the treadmill. I think based on these findings then instead of planning to do a heart cath, I will let him go home and continue to treat him medically. He has hyperlipidemia. I would like to try him again on Crestor. He has Crestor at home, so he is going to resume his 5 mg Crestor at home. Depending on how well he tolerates this, if we have to, we may have to try to see if we can get him approved for Repatha or Praluent I will see him back in the office for a couple weeks for followup. MD LIMA Sanchez/katarina , 07:27 PM , 07:38 PM
== END 2018-05-01 19:59 | disposition home or self-care (01) ==
LOC: NEDA 19:57 → NEPC 19:57 → NEPFCDU 05-01 01:47
PROVIDERS: ADMIT Internal Medicine Interventional Cardiology; ATTEND Internal Medicine Interventional Cardiology